=== PATIENT | female | born 1950 | race Caucasian/White ===

== ENCOUNTER 2016-08-04 07:09 | Inpatient (IN) ==
--- NOTE | 2016-08-03 11:18 | Discharge Summary ---
<Venessa Giles E - Last Filed: 08/04/16 09:09> Date of Encounter: 08/04/16 - Discharge Diagnosis (1) Arthritis of left knee Priority: Primary Status: Acute (2) Chronic pain syndrome Priority: Secondary (Patient to hold chronic pain med ([place]) while taking post- op pain med (Oxycodone)) Status: Acute (3) COPD (chronic obstructive pulmonary disease) Priority: Secondary Status: Chronic Qualifiers: COPD type: unspecified COPD Qualified Code(s): J44.9 - Chronic obstructive pulmonary disease, unspecified (4) Hypothyroidism Priority: Secondary Status: Chronic Qualifiers: Hypothyroidism type: unspecified Qualified Code(s): E03.9 - Hypothyroidism , unspecified (5) Obesity, Class III, BMI 40-49.9 (morbid obesity) Priority: Secondary Status: Chronic (6) History of kidney stones Priority: Secondary Status: Acute - Discharge Medications Home Medications: OxyCODONE Immed Rel [Roxicodone 5 MG] 5 - 10 mg PO Q6HR PRN #40 tablet 08/03/16 [Rx] Aspirin Enteric Coated [Aspirin EC] 325 mg PO BID #30 tablet. 08/04/16 [Rx] Buspirone HCl [Buspar] 10 mg PO TID 08/04/16 [History] Cholecalciferol (D-3) [Vitamin D] 2,000 unit PO DAILY 08/04/16 [History] Cyclobenzaprine [Flexeril] 10 mg PO TID 08/04/16 [History] HYDROcodone/Acet 10/325 mg [[place] 10-325 mg] 1 tab PO Q4-6H PRN 08/04/16 [ History] Levothyroxine [Synthroid] 50 mcg PO 0630 08/04/16 [History] Pramipexole Di-HCl [Pramipexole Dihydrochloride] 1 mg PO DAILY 08/04/16 [History ] Sertraline [Zoloft] 200 mg PO DAILY 08/04/16 [History] Trospium Chloride 20 mg PO BID 08/04/16 [History] Allergies/Adverse Reactions: Allergies morphine Allergy (Verified 08/04/16 08:18) Anaphylaxis Primary care physician: Willow Chase - Patient Status Disposition: Transfer Inpatient Rehab Fac Condition: Good - Discharge Instructions Follow Up With: Willow Chase [Primary Care Provider] - - Hospital Course Hospital course: Ms. Hills is a 65 year old female - Time Spent with Patient Total time spent providing and/or coordinating discharge services: <Dung Scott - Last Filed: 08/06/16 07:53> Date of Encounter: 08/06/16 Time of Encounter: 07:53 - Discharge Diagnosis (1) Arthritis of left knee Priority: Primary Status: Acute (2) Chronic pain syndrome Priority: Secondary Status: Acute (3) COPD (chronic obstructive pulmonary disease) Priority: Secondary Status: Chronic Qualifiers: COPD type: unspecified COPD Qualified Code(s): J44.9 - Chronic obstructive pulmonary disease, unspecified (4) Hypothyroidism Priority: Secondary Status: Chronic Qualifiers: Hypothyroidism type: unspecified Qualified Code(s): E03.9 - Hypothyroidism , unspecified (5) Obesity, Class III, BMI 40-49.9 (morbid obesity) Priority: Secondary Status: Chronic (6) Acute blood loss anemia Priority: Primary Status: Acute Primary care physician: Willow Chase - Patient Status Functional capacity at discharge: uses cane/walker Overall status at discharge: patient is progressing back to baseline - Hospital Course Hospital course: Ms. Hills is a 65 year old female The patient had an uneventful postoperative course. They received antibiotics and physical therapy and were discharged in stable condition. There will follow -up in the office in 2 weeks. Aspirin DVT prophylaxis - Time Spent with Patient Total time spent providing and/or coordinating discharge services:
--- NOTE | 2016-08-04 07:44 | History & Physical Report ---
Date of Encounter: 08/04/16 Time of Encounter: 07:43 24 Hour HP Update - Instructions Instructions: If the History and Physical is less than 30 days old and was completed prior to A.M. admission and or procedure and has NOT been updated on calendar day of procedure please complete this update prior to performing procedure. - Update Patient reports changes in Medical Condition: No Changes in examination, assessment, or condition: No Changes in Medication: No Preop tests/diagnostics Reviewed: Yes Surgery Remains Indicated: Yes Consent for Planned Operative Procedure(s) Verified: Yes - Pre-Operative Checklist Preoperative Checklist Indicated: No Prophylactic Antibiotic Ordered: Yes Is VTE Prophylaxis Indicated?: Yes
[2016-08-04] MEDS ORDERED: ROPIVACAINE HCL/PF 0.5% 30 ML VIAL ONE (07:46)
[2016-08-04] MEDS ORDERED: Bupivacaine/Clonidine Syringe 1 EACH SYRINGE ONE (07:47)
--- NOTE | 2016-08-04 07:47 | Anesthesia Evaluation PreOp ---
Date of Encounter: 08/04/16 Time of Encounter: 07:44 - Past History Planned Operation: Left Total Knee Arthroplasty Cardiac History: Denies any Significant Hx Pulmonary History: Former smoker (quit 24 years ago, smoked for 25 years), COPD , NATACHA Dx COPIER TECHNICIAN History: Denies Any Significant HX Other Medical History: Renal (kidney stones), Thyroid, GERD, Other (obesity BMI= 49.8) Anesthesia History: No Prior Anesthetic Complications, Past Anesthesia ( hysterectomy) Alcohol Use: none Drug use: none Medications and Allergies Hydrocodone/Acetaminophen [[place] 5-325 Tablet] 1 tab PO Q6H PRN #10 tab [Rx] Naproxen [Naprosyn] 500 mg PO BID PRN #15 tablet 12/28/15 [Rx] OxyCODONE Immed Rel [Roxicodone 5 MG] 5 - 10 mg PO Q6HR PRN #40 tablet 08/03/16 [Rx] Allergies morphine Allergy (Verified 08/04/16 08:18) Anaphylaxis - Meds/Allergy Pre-op Review Medications Reviewed: Yes Allergies Reviewed: Yes Beta Blockers on Current Med List: No Anesthesia Results - Labs Laboratory Tests 07/20/16 07/20/16 07/20/16 10:28 10:28 10:28 WBC 5.3 Hgb 13.1 Hct 39.1 Plt Count 174 PT 11.1 INR 1.0 APTT 28.6 Sodium 139 Potassium 4.4 BUN 31 H Creatinine 1.03 - Imaging EKG: report reviewed (08/04/2016 SR, short OH interval, possible lateral infarct) Anesthesia Exam O2 Sat Height 1.7 m Height 1.7 m Weight 144.242 kg Weight 144.242 kg O2 Sat by Pulse Oximetry 95 Vital Signs Temp Pulse Resp BP Pulse Ox 98.6 F 69 18 141/69 95 08/04/16 07:37 08/04/16 07:37 08/04/16 07:37 08/04/16 07:37 08/04/16 07:37 Height: 5'7'' Weight: 318 lbs NPO (# of Hours): 8 Pain Scale: 4 (left knee) Pain Scale Used: Numeric (1 - 10) - HEENT Pupil (Motor): EOMI Mallampati: II Teeth: Normal Denture Type: Upper: Partial, Lower: Partial Oral Opening: Greater than 3 - COPIER TECHNICIAN LOC: Oriented COPIER TECHNICIAN Motor: Normal RUE, Normal LUE, Normal RLE, Normal LLE, Normal Face COPIER TECHNICIAN Sensory: Normal: RUE, LUE, RLE, LLE, Face - Cardiac Rhythm: Regular Murmur: None - Pulmonary Breath Sounds: bilateral Clear Respiratory Effort: Symmetrical Anesthesia Assess/Plan ASA Score: 3 Modified [place] Scale for Level of Consciousness: Cooperative, oriented, and tranquil Anesthetic Plan: General, Regional Monitoring Plan: Standard Monitors Recovery Plan: PACU
[2016-08-04] MEDS ORDERED: Albuterol 2.5 MG/3 ML NEBULIZER IH ONE (08:01)
[2016-08-04] MEDS ORDERED: CeFAZolin Pre 3,000 MG/100 ML 3,000 MG/100 ML BAG IVPB ONE (08:07)
[2016-08-04] MEDS ORDERED: Lidocaine -MPF 2% 2 ML VIAL ONE (08:09)
[2016-08-04] MEDS ORDERED: Ondansetron 4 MG/2 ML VIAL ONE (08:09)
[2016-08-04] MEDS ORDERED: Dexamethasone 4 MG/ML VIAL ONE (08:09)
[2016-08-04] MEDS ORDERED: *HR* FentaNYL (PF) 100 MCG/2 ML VIAL ONE (08:10)
[2016-08-04] MEDS ORDERED: *HR* Midazolam HCl 2 MG/2 ML VIAL ONE (08:10)
[2016-08-04] MEDS ORDERED: *HR* Propofol 200 MG/20 ML VIAL IVP ONE ×2 (08:11→09:33)
[2016-08-04] MEDS ORDERED: Ondansetron 4 MG/2 ML VIAL IVP ONE (08:12)
[2016-08-04] MEDS ORDERED: Dexamethasone 4 MG/ML VIAL IVP ONE (08:12)
[2016-08-04] MEDS ORDERED: Ringers Solution, Lactated 1,000 ML IVC SCH ×2 (08:15→11:06)
[2016-08-04] MEDS: Ringers Solution, Lactated 1,000 ML IVC SCH ×2 (08:26→10:35)
--- NOTE | 2016-08-04 09:35 | Anesthesia Procedures ---
Date of Encounter: 08/04/16 Time of Encounter: 08:50 Procedures: Anesthesia - Nerve Block Procedure Date: 08/04/16 Time: 08:50 Allergies/Adv Reactions: Morphine Pre-op Diagnosis: Left knee OA Surgical Procedure: Left total knee arthroplasty Checklist: Correct Patient Identifier, Correct procedure, History checked Correct side: Left Blood Thinner: No Monitor Applied: EKG, BP, Pulse Oximetry Supplemental Oxygen via Nasal Cannula (L/min): 2 Sedation: Versed (mg): 2 Sedation: Fentanyl (mcg): 100 Indication: Post Op Analgesia Pre-op Neuro Deficits: No Block Type: Femoral, Other Catheter placed: No Sterile Technique: Yes Ultrasound used: Yes Anatomy identified: Yes Visual spread of Local: Yes Neuro Stimulation: Yes Nerve Stimulator Range: 0.2 - 0.4 mA Blood on Needle Aspiration: No Smooth Injection of Local: Yes Pain with Injection of Local: No Prep: Chlorhexadine Needle: 22 x 50 mm Stimuplex, 21 x 100 mm Stimuplex Local: 0.25% Bupivicaine w/Clonidine 20 mcg/cc (20ml IPAC), Ropivacaine (30ml 0.5% femoral), Other (Decadron 8mg) Volume (cc): 50 total Number of Attempts: 1 Complications: None/effective block Vitals: Vital Signs Temperature 98.6 F 08/04/16 07:37 Pulse Rate 69 08/04/16 07:37 Respiratory Rate 18 08/04/16 07:37 Blood Pressure 141/69 08/04/16 07:37 O2 Sat by Pulse Oximetry 95 08/04/16 07:37 Temperature 98.6 F 08/04/16 08:40 Pulse Rate 84 08/04/16 09:02 Respiratory Rate 18 08/04/16 08:40 Blood Pressure 130/67 08/04/16 09:02 O2 Sat by Pulse Oximetry 96 08/04/16 09:02
--- NOTE | 2016-08-04 10:07 | Orthopedic Operative Note ---
Date of procedure: 08/04/16 Pre-op diagnosis: Left knee arthritis Post-op diagnosis: same Procedure: Procedure: Left Total knee replacement Estimated blood loss: 200 cc Hardware: Arthrex Femur: 7 Tibia: 5 PS insert: 10 Patella: 34 Exam Under anesthesia: Loss full extension 10 degrees valgus alignment Procedural Notes: Grade 4 arthritic changes all 3 compartments. Operative procedure: The patient was brought to the operating room and placed on the operating room table. After general anesthesia was administered the operative knee was examined. Findings were noted in the exam under anesthesia. The operative extremity was prepped and draped in sterile surgical fashion. The patient received IV antibiotics prior to skin incision. A standard midline incision was made centered over the patella. The incision was made through the skin and subcutaneous tissue. A medial parapatellar tendon approach was performed. Care was taken to preserve tissue along the medial aspect of the patella. And to protect the patella tendon. The deep MCL was released off the medial tibia. The infra patella fat pad was excised. Knee was brought into flexion. Patient noted to have grade 4 arthritic changes all 3 compartments. The entry hole was made for the intramedullary femoral guide. The guide was seated in 6 degrees of valgus. Anterior cut was made followed by the distal cut. The ACL the PCL the medial and the lateral menisci were excised. The tibia was subluxed forward. The entry hole was made for the intramedullary tibial guide. Guide was seated to resect 2 mm off the more abnormal side. The knee was brought into flexion the distal femur was sized 7. The femoral guide was seated , the anterior cut was made followed by the posterior condylar cut, followed by the chamfer cuts. The finishing guide was seated the box cut was made and the lug holes were drilled. The tibia was sized 5, the tibial tray was seated and prepared with the large drill followed by the fin cutter. Trial reduction revealed full extension no varus valgus instability with the appropriate 10 PS Maura. The patella was everted and cut was made at the level of the insertion of the quadriceps and patella tendon. The patella was sized 34 the guide was seated and the lug holes are drilled. Trial reduction revealed excellent patella tracking. All trial components were removed all bony surfaces were irrigated. The tibia was cemented first followed by the femur. 10 PS Maura was seated and the knee was brought into full extension. The patella was cemented and held in place with the patellar holding clamp. After the cement had hardened, the knee sat for 2 minutes with a Betadine saline solution. The knee was then irrigated out with 2 L of pulse irrigation. The extensor mechanism was closed with #2 FiberWire suture and #2 PDS suture. The subcutaneous tissue was then irrigated and closed deep with #1 PDS suture superficially with 0 PDS suture and skin was closed with skin breanna. The patient was then placed in a sterile dressing and a postoperative brace extubated and transferred to recovery room in stable condition. Anesthesia: PEYTON Surgeon: Dung Scott Steel Finisher: Venessa Giles Condition: stable Disposition: PACU
[2016-08-04] MEDS: *HR* HYDROmorphone (PF) 1 MG/ML SYRINGE IVP PRN ×8 (10:16→23:54)
[2016-08-04 10:36] LABS: Hematocrit 33.2 % (35.3-44.9); Hemoglobin 10.4 g/dL (11.5-15.4)
--- NOTE | 2016-08-04 10:51 | Anesthesia Evaluation Post Op ---
Date of Encounter: 08/04/16 Time of Encounter: 10:50 - Vital Signs Vital Signs: Vital Signs/O2 Sat, Most Current Temp Pulse Resp BP Pulse Ox 99.2 F 83 12 137/70 91 08/04/16 10:09 08/04/16 10:29 08/04/16 10:29 08/04/16 10:29 08/04/16 10:29 - Lungs Lungs: Clear Ascult./Percussion - Airway Airway: Non-obstructed - Cardiovascular Regular Rate - Mental Status Mental Status: Alert & Oriented, Answers Appropriately - Pain Pain Scale: 5 Pain Scale used: Numeric (1 - 10) - Nausea Vomiting Nausea Vomiting: Not Present - Hydration Hydration: Ice chips, Has not voided - Discharge PostOp Status: Transfer Patient to floor
[2016-08-04] MEDS ORDERED: MOM Conc 10 ML UD.LIQ PO PRN (11:06)
[2016-08-04] MEDS ORDERED: *HR* OxyCODONE Immed Rel 5 MG TABLET PO PRN (11:06)
[2016-08-04] MEDS ORDERED: Sennosides 8.6 MG TABLET PO PRN (11:06)
[2016-08-04] MEDS ORDERED: Temazepam 15 MG CAPSULE PO PRN (11:06)
[2016-08-04] MEDS ORDERED: Naloxone 0.4 MG/ML INJ IVP PRN (11:06)
[2016-08-04] MEDS ORDERED: Ondansetron 4 MG/2 ML VIAL IVP PRN (11:06)
--- NOTE | 2016-08-04 11:23 | Electrocardiograph Report ---
[facility] Test Date: 2016-08-04 Pat Name: Key Hills Department: 106 Room: [facility] Gender: [employer] Head: : 1950 Requested By: Tay Monzon Order Number: [id number] Reading MD: Stan Mercedes MD Measurements Intervals [place] Rate: 73 P: 56 KS: 99 QRS: 36 QRSD: 110 T: 96 QT: 420 QTc: 446 Interpretive Statements SINUS RHYTHM WITH SHORT [place] INTERVAL LATERAL MYOCARDIAL INFARCTION, OF INDETERMINATE AGE Electronically Signed On 08-04-2016 11:21:44 EDT by Stan Mercedes MD
[2016-08-04] MEDS: *HR* OxyCODONE Immed Rel 5 MG TABLET PO PRN ×2 (12:35→17:04)
[2016-08-04] MEDS: ceFAZolin 3,000 MG in D5% in Water 100 ML IVPB SCH (17:03)
[2016-08-04] MEDS: *HR* Enoxaparin 30 MG/0.3 ML SYRINGE SQ SCH (17:04)
[2016-08-05] MEDS: ceFAZolin 3,000 MG in D5% in Water 100 ML IVPB SCH (00:15)
[2016-08-05] MEDS: *HR* OxyCODONE Immed Rel 5 MG TABLET PO PRN ×4 (01:18→15:34)
[2016-08-05] MEDS: *HR* HYDROmorphone (PF) 1 MG/ML SYRINGE IVP PRN ×5 (03:09→18:29)
[2016-08-05] MEDS: *HR* Enoxaparin 30 MG/0.3 ML SYRINGE SQ SCH ×2 (06:33→18:29)
[2016-08-05 07:00] LABS: BUN/Creatinine Ratio 19 (6-26); Blood Urea Nitrogen 14 mg/dL (7-20); Calcium 8.3 mg/dL (8.6-10.8); Carbon Dioxide 31 mEq/L (19-29); Chloride 100 mEq/L (98-109); Glucose 130 mg/dL (70-99); Osmolality,Calculated 288 (280-300); Sodium 138 mEq/L (136-145); eGFR For African Americans > 60 (> 60); eGFR For Non-African Americans > 60 (> 60)
[2016-08-05 07:05] LABS: Hematocrit 31.9 % (35.3-44.9); Hemoglobin 9.7 g/dL (11.5-15.4)
[2016-08-05] MEDS: Cholecalciferol (D-3) 1,000 UNIT TABLET PO SCH (07:41)
--- NOTE | 2016-08-05 07:58 | Orthopedics Progress Note ---
Date of Encounter: 08/05/16 Time of Encounter: 07:57 - Assessment and Plan (1) Arthritis of left knee Current Visit: Yes Status: Acute (2) Chronic pain syndrome Current Visit: Yes Status: Acute (3) COPD (chronic obstructive pulmonary disease) Current Visit: Yes Status: Chronic Qualifiers: COPD type: unspecified COPD Qualified Code(s): J44.9 - Chronic obstructive pulmonary disease, unspecified (4) Hypothyroidism Current Visit: Yes Status: Chronic Qualifiers: Hypothyroidism type: unspecified Qualified Code(s): E03.9 - Hypothyroidism , unspecified (5) Obesity, Class III, BMI 40-49.9 (morbid obesity) Current Visit: Yes Status: Chronic Subjective Interval history: Patient was seen this morning doing well without complaints. Afebrile vital signs stable. Operative extremity: Neurovascularly intact Dressing clean dry and intact Calves nontender Assessment and plan: Continue with postoperative care Hematocrit 31 Objective Vital signs: Vital Signs Temp Pulse Resp BP Pulse Ox 08/05/16 06:32 98.1 F 73 16 135/78 95 08/05/16 04:00 97.7 F 70 17 137/79 96 08/05/16 00:00 97.7 F 86 17 177/76 98 08/04/16 20:00 98.1 F 83 16 130/74 92 08/04/16 14:52 98.3 F 85 16 129/73 99 08/04/16 12:17 98 F 91 18 148/71 97 08/04/16 11:45 98.1 F 89 20 159/87 95 08/04/16 11:09 95 08/04/16 11:08 98.2 F 84 18 121/75 95 08/04/16 10:49 97.8 F 84 14 134/69 94 08/04/16 10:39 97.8 F 85 13 140/69 93 08/04/16 10:29 83 12 137/70 91 08/04/16 10:19 84 16 137/75 93 08/04/16 10:09 99.2 F 82 20 135/75 98 08/04/16 09:02 84 130/67 96 08/04/16 08:46 81 143/66 94 08/04/16 08:40 98.6 F 69 18 141/69 95 Intake and Output 08/04/16 08/04/16 08/05/16 15:59 23:59 07:59 Intake Total 100 / 100 1000 / 1000 250 / 250 Output Total 200 / 200 575 / 575 325 / 325 Balance -100 / -100 425 / 425 -75 / -75 Intake: IV Fluids 100 / 100 100 / 100 Lactated Ringers 1,000 ML 0 / 0 @ 25 mls/hr IVC .Q24H [place] Rx#:[id number] Ancef 3,000 MG In 100 / 100 Dextrose 5% 100 ML @ 200 mls/hr IVPB Q8H [place] Rx#: [id number] Ancef Premix 3,000 MG/100 100 / 100 ML 3,000 mg In 100 ml @ 200 mls/hr IVPB PREOP ONE Rx#:[id number] Oral 900 / 900 250 / 250 Output: Urine 575 / 575 325 / 325 Estimated Blood Loss 200 / 200 Other: Meal Dinner Percent of Meal Consumed 100% Weight 144.242 kg - Labs CBC & BMP: 08/05/16 05:39 08/05/16 05:39 Labs: Abnormal lab results Hgb 9.7 g/dL (11.5-15.4) L 08/05/16 05:39 Hct 31.9 % (35.3-44.9) L 08/05/16 05:39 Carbon Dioxide 31 mEq/L (19-29) H 08/05/16 05:39 Glucose 130 mg/dL (70-99) H 08/05/16 05:39 Calcium 8.3 mg/dL (8.6-10.8) L 08/05/16 05:39 - VTE Documentation of Mechanical Device: Venous foot pump, device Consult Discharge Plan - Plan Referrals: Willow Chase [Primary Care Provider] -
[2016-08-05] MEDS ORDERED: Acetaminophen IV 1,000 MG/100 ML INFUS..BTL IVPB ONE (13:21)
[2016-08-05] MEDS: Ketorolac 30 MG/ML VIAL IVP PRN ×2 (14:30→21:30)
[2016-08-05] MEDS: Gabapentin 300 MG CAPSULE PO SCH ×2 (17:45→20:08)
[2016-08-06] MEDS: *HR* HYDROmorphone (PF) 1 MG/ML SYRINGE IVP PRN (01:43)
[2016-08-06] MEDS: *HR* OxyCODONE Immed Rel 5 MG TABLET PO PRN ×3 (03:16→13:09)
[2016-08-06] MEDS: *HR* Enoxaparin 30 MG/0.3 ML SYRINGE SQ SCH (05:40)
[2016-08-06 06:11] LABS: Hematocrit 27.4 % (35.3-44.9); Hemoglobin 8.3 g/dL (11.5-15.4)
[2016-08-06 06:33] LABS: BUN/Creatinine Ratio 18 (6-26); Blood Urea Nitrogen 13 mg/dL (7-20); Calcium 8.3 mg/dL (8.6-10.8); Carbon Dioxide 31 mEq/L (19-29); Chloride 99 mEq/L (98-109); Glucose 112 mg/dL (70-99); Osmolality,Calculated 285 (280-300); Potassium 4.3 mEq/L (3.5-4.5); Sodium 137 mEq/L (136-145); eGFR For African Americans > 60 (> 60); eGFR For Non-African Americans > 60 (> 60)
--- NOTE | 2016-08-06 07:54 | Orthopedics Progress Note ---
Date of Encounter: 08/06/16 Time of Encounter: 07:54 - Assessment and Plan (1) Arthritis of left knee Current Visit: Yes Status: Acute (2) Chronic pain syndrome Current Visit: Yes Status: Acute (3) COPD (chronic obstructive pulmonary disease) Current Visit: Yes Status: Chronic Qualifiers: COPD type: unspecified COPD Qualified Code(s): J44.9 - Chronic obstructive pulmonary disease, unspecified (4) Hypothyroidism Current Visit: Yes Status: Chronic Qualifiers: Hypothyroidism type: unspecified Qualified Code(s): E03.9 - Hypothyroidism , unspecified (5) Obesity, Class III, BMI 40-49.9 (morbid obesity) Current Visit: Yes Status: Chronic (6) Acute blood loss anemia Current Visit: Yes Status: Acute Subjective Interval history: Patient was seen this morning doing well without complaints. Afebrile vital signs stable. Operative extremity: Neurovascularly intact Dressing clean dry and intact Calves nontender Assessment and plan: Continue with postoperative care Hemoglobin 8.3 discharged today Objective Vital signs: Vital Signs Temp Pulse Resp BP Pulse Ox 08/06/16 06:55 98.5 F 87 16 155/78 95 08/06/16 05:45 98.3 F 90 17 163/77 97 08/05/16 20:00 98.7 F 104 16 118/60 91 08/05/16 14:08 98.7 F 87 16 129/76 95 08/05/16 10:33 98.4 F 83 16 131/72 96 Intake and Output 08/05/16 08/05/16 08/06/16 15:59 23:59 07:59 Other: # Voids 1 1 - Labs CBC & BMP: 08/06/16 05:13 08/06/16 05:13 Labs: Abnormal lab results Hgb 8.3 g/dL (11.5-15.4) L 08/06/16 05:13 Hct 27.4 % (35.3-44.9) L 08/06/16 05:13 Carbon Dioxide 31 mEq/L (19-29) H 08/06/16 05:13 Glucose 112 mg/dL (70-99) H 08/06/16 05:13 Calcium 8.3 mg/dL (8.6-10.8) L 08/06/16 05:13 - VTE Documentation of Mechanical Device: Venous foot pump, device Consult Discharge Plan - Plan Referrals: Willow Chase [Primary Care Provider] -
[2016-08-06] MEDS: Gabapentin 300 MG CAPSULE PO SCH ×2 (09:06→14:41)
[2016-08-06] MEDS: Cholecalciferol (D-3) 1,000 UNIT TABLET PO SCH (09:07)
[2016-08-06 15:31] VITALS: BP 128/70
--- NOTE | 2016-08-06 19:39 | Venous Imaging Report ---
LE Venous Duplex Patient Name:Key Hills Order Number:[id number] Procedure Date:08/05/2016 Date:1950ge:65 yrs Gender:Female Location:[facility] Room #: 3NE23 Cryogenics Engineer:Terri Sandoval RDCS Referring MD:Dung Scott MD siding stapler:Willow Chase MD Reading MD:Bradley Castaneda MD Primary Indications:DVT Secondary Indications: Risk Factors Yes/No Anticoagulants Yes Recent Surgery Yes Impressions: Normal left lower extremity deep and superficial venous exam. Recommendations: Preliminary given to Pt RN, Gina. Findings Venous Duplex Results: Left: Venous imaging of the lower extremity reveals full patency and normal vessel compressibility of the left distal iliac, left common femoral, left superficial femoral, left popliteal, left posterior tibial, left peroneal, left great saphenous and left lesser saphenous. Doppler signals in the evaluated veins were normal. Prior Study: No prior study available for comparison. Lower Extremity Venous Duplex Side Vein Compress Spontaneous Flow Augment Diameter (cm) Depth (cm) Left Distal Iliac Normal Yes Phasic Yes Left Common Femoral Normal Yes Phasic Yes Left Superficial Femoral Normal Yes Phasic Yes Left Popliteal Normal Yes Phasic Yes Left Posterior Tibial Normal Yes Phasic Yes Left Peroneal Normal Yes Phasic Yes Left Great Saphenous Normal Yes Phasic Yes Left Lesser Saphenous Normal Yes Phasic Yes Updated by Bradley Castaneda MD on 08/06/2016 7:32:14 PM electronically signed on 08/06/2016 7:32:30 PM with status of Final
== END 2016-08-06 16:38 | DRG 302 ==
LOC: SAMDAY 07:09 → 3NENU 11:20
PROVIDERS: ADMIT Orthopaedic Surgery; ATTEND Orthopaedic Surgery

== ENCOUNTER 2018-09-11 12:37 | Inpatient (IN) ==
[2018-09-11] MEDS ORDERED: Albuterol 2.5 MG/3 ML NEBULIZER IH ONE (12:49)
[2018-09-11] MEDS ORDERED: Ethanol\\Acetic Acid\\Na Ace\\Ben 1,000 ML IRRIG.SOLN IR ONE ×2 (12:52→14:09)
[2018-09-11] MEDS ORDERED: Acetaminophen IV 1,000 MG/100 ML INFUS..BTL IVPB ONE (12:54)
[2018-09-11] MEDS ORDERED: Famotidine 20 MG/2 ML VIAL IVP ONE (12:54)
[2018-09-11] MEDS ORDERED: Celecoxib 100 MG CAPSULE PO ONE (12:55)
[2018-09-11] MEDS ORDERED: Pregabalin 75 MG CAPSULE PO ONE (12:55)
[2018-09-11] MEDS ORDERED: Ringers Solution, Lactated 1,000 ML IVC SCH ×2 (13:00→17:28)
[2018-09-11] MEDS ORDERED: ROPIVACAINE HCL/PF 0.5% 30 ML VIAL ONE (13:06)
[2018-09-11] MEDS ORDERED: Lidocaine -MPF 2% 2 ML VIAL ONE ×2 (13:15→14:45)
[2018-09-11] MEDS ORDERED: Dexamethasone 4 MG/ML VIAL ONE (13:15)
--- NOTE | 2018-09-11 13:18 | Anesthesia Evaluation PreOp ---
Date of Encounter: 09/11/18 Time of Encounter: 13:15 - Past History Planned Operation: Left TKA Revision Cardiac History: Denies any Significant Hx Pulmonary History: COPD, NATACHA Dx (CPAP) FINISHING INSPECTOR History: Denies Any Significant HX Other Medical History: Diabetes Type II, Thyroid, GERD, Other (Morbid Obesity) Anesthesia History: No Prior Anesthetic Complications : No Alcohol Use: none Drug use: none Medications and Allergies Cholecalciferol (D-3) [Vitamin D] 2,000 unit PO HS 08/04/16 [History] Cyclobenzaprine [Flexeril] 10 mg PO BID 08/04/16 [History] HYDROcodone/Acet 10/325 mg [[place] 10-325 mg] 1 tab PO Q4-6H PRN 08/04/16 [History] Levothyroxine [Synthroid] 50 mcg PO HS 08/04/16 [History] Pramipexole Di-HCl [Pramipexole Dihydrochloride] 1 mg PO HS 08/04/16 [History] Albuterol Sulfate [Ventolin Hfa] 2 puff IH Q4H PRN 02/24/17 [History] Gabapentin [Neurontin] 600 mg PO HS 02/24/17 [History] Potassium 198 mg PO HS 02/24/17 [History] Aspirin Enteric Coated [Aspirin EC] 325 mg PO BID #20 tablet. 08/26/17 [Rx] Cyanocobalamin (Vitamin B-12) [Vitamin B-12] 1,000 mcg PO DAILY 08/26/17 [History] Duloxetine HCl [Cymbalta] 60 mg PO DAILY 08/26/17 [History] Fluticasone/Vilanterol [Breo Ellipta 200-25 Mcg INH] 1 puff IH DAILY 08/26/17 [History] HYDROcodone/Acet 5/325 mg [[place] 5-325 mg] 1 tab PO Q6H PRN 5 Days #20 tab 08/26/17 [Rx] Meloxicam [Mobic] 15 mg PO DAILY 08/26/17 [History] predniSONE [Prednisone] 50 mg PO DAILY #5 tablet 10/20/17 [Rx] Allergy/AdvReac Type Severity Reaction Status Date / Time morphine Allergy Hives Verified 09/11/18 13:04 oxycodone [Oxycodone] AdvReac Hallucinati Verified 09/11/18 13:04 ng - Meds/Allergy Pre-op Review Medications Reviewed: Yes Allergies Reviewed: Yes Beta Blockers on Current Med List: No Anesthesia Results - Labs Laboratory Tests 09/06/18 09/06/18 11:30 11:30 Hgb 12.2 Hct 38.7 Plt Count 193 Sodium 139 Potassium 4.1 BUN 17 Creatinine 0.67 - Imaging EKG: report reviewed (SR) Anesthesia Exam O2 Sat Height 1.7 m Height 1.7 m Weight 148.325 kg Weight 148.325 kg O2 Sat by Pulse Oximetry 95 Vital Signs Temp Pulse Resp BP Pulse Ox 98.1 F 82 18 153/80 95 09/11/18 12:55 09/11/18 12:55 09/11/18 12:55 09/11/18 12:55 09/11/18 12:55 Height: 5'7 Weight: 327 lbs NPO (# of Hours): [place] Pain Scale: 0 - HEENT Pupil (Motor): Pupils equal, EOMI Mallampati: III Teeth: Normal Oral Opening: Less than or equal to 3 - FINISHING INSPECTOR LOC: Oriented FINISHING INSPECTOR Motor: Normal RUE, Normal LUE, Normal RLE, Normal LLE, Normal Face FINISHING INSPECTOR Sensory: Normal: RUE, LUE, RLE, LLE, Face - Cardiac Rhythm: Regular Murmur: None JVD: No Carotid Bruit: No - Pulmonary Breath Sounds: bilateral Clear Respiratory Effort: Symmetrical Anesthesia Assess/Plan ASA Score: 3 (NATACHA MO) Level of consciousness: Cooperative, Oriented Anesthetic Plan: Regional Nerve Block, Spinal Regional Nerve Block Plan: Adductor canal Monitoring Plan: Standard Monitors Recovery Plan: PACU (Discussed SAB with Adductor Canal Block, possible GA, agrees to proceed)
--- NOTE | 2018-09-11 13:34 | History & Physical Report ---
Date of Encounter: 09/11/18 Time of Encounter: 13:34 24 Hour HP Update - Instructions Instructions: If the History and Physical is less than 30 days old and was completed prior to A.M. admission and or procedure and has NOT been updated on calendar day of procedure please complete this update prior to performing procedure. - Update Patient reports changes in Medical Condition: No Changes in examination, assessment, or condition: No Changes in Medication: No Preop tests/diagnostics Reviewed: Yes Surgery Remains Indicated: Yes Consent for Planned Operative Procedure(s) Verified: Yes - Pre-Operative Checklist Preoperative Checklist Indicated: No Prophylactic Antibiotic Ordered: Yes Is VTE Prophylaxis Indicated?: Yes
[2018-09-11] MEDS ORDERED: Tranexamic Acid 1,000 MG/10 ML VIAL ONE (14:31)
[2018-09-11] MEDS ORDERED: *HR* Midazolam HCl 2 MG/2 ML VIAL ONE (14:45)
[2018-09-11] MEDS ORDERED: *HR* PHENYLEPHRINE 1,000 MCG/10 ML SYRINGE IVP ONE (14:45)
[2018-09-11] MEDS ORDERED: *HR* Propofol 200 MG/20 ML VIAL IVP ONE ×2 (14:45→15:12)
[2018-09-11] MEDS ORDERED: Propofol 500 MG/50 ML INFUS..BTL ONE ×4 (14:45→15:46)
[2018-09-11] MEDS ORDERED: *HR* FentaNYL (PF) 100 MCG/2 ML VIAL ONE (14:45)
--- NOTE | 2018-09-11 14:50 | Anesthesia Procedures ---
Date of Encounter: 09/11/18 Time of Encounter: 14:00 Procedures: Anesthesia - Epidural/Spinal Patient ID/Chart reviewed: Yes Patient examined: Yes Consent Obtained: Yes Supplemental Oxygen: Nasal Cannula Supplemental Oxygen Rate (L/min): 2 Sedation: Versed (mg): 2 Sedation: Fentanyl (mcg): 100 Site Prep: Aseptic Technique, Sterile prep and drape, Povidone-Iodine 1% Patient position: upright Local Anesthetic: Lidocaine 1% Amount of Local Anesthetic used: 3 Interspace Used: L4-L5 Blood: No CSF: Yes (spinal) Paresthesia: No Spinal Needle Gauge: 24 (pencan) Spinal Dose: bupivicaine 0.5% 2ml Vitals + FHT's: Vital Signs - Last 8 Hours Temp Pulse Resp BP Pulse Ox 09/11/18 13:50 83 144/91 94 09/11/18 12:55 98.1 F 82 18 153/80 95 Intake and Output 09/10/18 09/11/18 09/11/18 23:59 07:59 15:59 Other: Weight 148.325 kg Blood Glucose* 120 Patient Weight 09/11/18 23:59 Weight 148.325 kg - Nerve Block Procedure Date: 09/11/18 Time: 14:00 Allergies/Adv Reactions: morphine oxycodone Pre-op Diagnosis: left total knee arthritis Surgical Procedure: left total knee revision Checklist: Correct Patient Identifier, Correct procedure, History checked Correct side: Left Blood Thinner: No Monitor Applied: EKG, BP, Pulse Oximetry Supplemental Oxygen via Nasal Cannula (L/min): 2 Sedation: Versed (mg): 2 Sedation: Fentanyl (mcg): 100 Indication: Post Op Analgesia Pre-op Neuro Deficits: No Block Type: Other (adductor canal ) Catheter placed: No Sterile Technique: Yes Ultrasound used: Yes Anatomy identified: Yes Visual spread of Local: Yes Neuro Stimulation: No Blood on Needle Aspiration: No Smooth Injection of Local: Yes Pain with Injection of Local: No Prep: Chlorhexadine Needle: 21 x 100 mm Stimuplex Local: Ropivacaine (0.5% ropi with 8mg decadron ) Volume (cc): 30 Number of Attempts: 1 Complications: None/effective block Vitals: Vital Signs - Last 8 Hours Temp Pulse Resp BP Pulse Ox 09/11/18 13:50 83 144/91 94 09/11/18 12:55 98.1 F 82 18 153/80 95 Intake and Output 09/10/18 09/11/18 09/11/18 23:59 07:59 15:59 Other: Weight 148.325 kg Blood Glucose* 120 Patient Weight 09/11/18 23:59 Weight 148.325 kg
[2018-09-11] MEDS ORDERED: Ropivacaine/PF 0.5% 24.62 ML, EPINEPHrine 0.25 MG, Ketorolac 15 MG, Water for inj. (ste... IR ONE (14:55)
--- NOTE | 2018-09-11 15:59 | Orthopedic Operative Note ---
Date of procedure: 09/11/18 Pre-op diagnosis: Painful unstable left total knee with patellar maltracking Post-op diagnosis: same Procedure: Procedure: Left revision robotic-assisted Total knee replacement with lateral release. Estimated blood loss: 200 cc Hardware: Metal and polyethylene replacement. Drew Femur: 4, 16 x 100 stem Tibia: 5, 10 x 100 stem TS insert: 16 Exam Under anesthesia: 7 degrees flexion contracture 6 degree varus as calculated by the robot full flexion and no instability Procedural Notes: Patella maltracking, loose tibial component. Operative procedure: The patient was brought to the operating room and placed on the operating room t able. After general anesthesia was administered the operative knee was examined. Findings were noted in the exam under anesthesia. The operative extremity was prepped and draped in sterile surgical fashion. The patient received IV antibiotics prior to skin incision. A standard midline incision was made centered over the patella revealed incision. The incision was made through the skin and subcutaneous tissue. A medial parapatellar tendon approach was performed. Care was taken to preserve tissue along the medial aspect of the patella. And to protect the patella tendon. The deep MCL was released off the medial tibia. The infra patella fat pad was excised. Fluid encountered was normal joint fluid sent for Gram stain and culture. The patella was everted close examination of the patella revealed no abnormalities or abnormal wear the component. It was well fixed. A lateral release was performed at this time. Knee was brought into flexion. Steinmann pins were placed in the tibia and the femur for the tibial and femoral arrays respectively. Checkpoints were also placed in the tibia and the femur for calculation purposes. The knee including the femur and the tibial registered. The poly-was removed, using an osteotome and oscillating saw the femoral and tibial components were removed without incident. The tibial component was loose. Femoral cuts were made first with robotic assistance, these included the anterior cut posterior cuts chamfer cuts. Tibial cut was then performed with robotic assistance as well. Bone fragments were removed, as well as the medial and lateral meniscus. The size 4 femoral guide was seated box cut was made lug holes are drilled. The size 5 tibial tray was seated and prepared with the fin cutter. Trial reduction with the 16 TS Maura revealed extension 0 degrees varus 5 degree and full flexion. No varus valgus instability. Trial reduction revealed excellent patella tracking. All trial components were removed all bony surfaces were irrigated. The distal femur was reamed to a 16 x 100, the proximal tibia was reamed to a 10 x 100. Seated had good fit and fixation. Components were assembled on the back table. The Tibia was seated followed by the femur, The selected Maura size was seated. Patient had similar findings for motion and stability. The knee was closed by the PA. The knee was then irrigated out with 2 L of pulse irrigation. The extensor mechanism was closed with #2 FiberWire suture and #2 PDS suture. The subcutaneous tissue was then irrigated and closed deep with #1 PDS suture superficially with 0 PDS suture and skin was closed with zip tie The patient was then placed in a sterile dressing and a postoperative brace extubated and transferred to recovery room in stable condition. Anesthesia: spinal Surgeon: Dung Scott Was there an assistant winemaker present: No Estimated blood loss (cc): 200 Condition: stable Disposition: PACU
[2018-09-11 17:28] LABS: Hematocrit 31.8 % (35.3-44.9)
[2018-09-11] MEDS ORDERED: Naloxone 0.4 MG/ML INJ IVP PRN (17:28)
[2018-09-11] MEDS ORDERED: MOM Conc 10 ML UD.LIQ PO PRN (17:28)
[2018-09-11] MEDS ORDERED: *HR* Promethazine 25 MG/ML VIAL IVP PRN (17:28)
[2018-09-11] MEDS ORDERED: Ondansetron 4 MG/2 ML VIAL IVP PRN (17:28)
[2018-09-11] MEDS ORDERED: Temazepam 15 MG CAPSULE PO PRN (17:28)
[2018-09-11] MEDS ORDERED: HYDROcodone BIT/Homatropine 5 MG TABLET PO PRN (17:28)
[2018-09-11] MEDS ORDERED: Nystatin POWDER 30 GM BOTTLE TP PRN (17:28)
[2018-09-11] MEDS ORDERED: traMADol 50 MG TABLET PO PRN (17:28)
[2018-09-11] MEDS ORDERED: Sennosides 8.6 MG TABLET PO PRN (17:28)
--- NOTE | 2018-09-11 17:28 | Anesthesia Evaluation Post Op ---
Date of Encounter: 09/11/18 Time of Encounter: 17:28 - Vital Signs Vital Signs: Last Vital Signs Temp 98.7 F 09/11/18 17:10 Pulse 60 09/11/18 17:10 Resp 18 09/11/18 17:10 BP 122/67 09/11/18 17:10 Pulse Ox 93 09/11/18 17:10 - Lungs Lungs: Clear Ascult./Percussion - Airway Airway: Non-obstructed - Cardiovascular Regular Rate - Mental Status Mental Status: Alert & Oriented, Answers Appropriately - Pain Pain Scale: 1 - Nausea Vomiting Nausea Vomiting: Not Present - Hydration Hydration: NPO - Discharge PostOp Status: Transfer Patient to floor
[2018-09-11 17:36] LABS: Hemoglobin 10.1 g/dL (11.5-15.4)
[2018-09-11] MEDS ORDERED: *HR* Enoxaparin 30 MG/0.3 ML SYRINGE SQ SCH (18:00)
[2018-09-11] MEDS: *HR* Enoxaparin 30 MG/0.3 ML SYRINGE SQ SCH (18:12)
[2018-09-11] MEDS: *HR* Metformin 500 MG TABLET PO SCH (18:13)
[2018-09-11] MEDS: Ascorbic Acid 500 MG TABLET PO SCH (18:13)
[2018-09-11] MEDS: *HR* HYDROcodone/Acet 10/325 mg TABLET PO PRN (18:20)
[2018-09-11] MEDS: ceFAZolin 3,000 MG in 0.9 % Sodium Chloride 100 ML IVPB SCH (19:12)
--- NOTE | 2018-09-11 21:23 | Discharge Summary ---
<Venessa Forbes - Last Filed: 09/11/18 21:20> Orders not resulted at time of discharge: Pending orders 09/11/18 01:00 XR knee LT 1-2V [XR] Routine 09/11/18 12:53 US anesthesia pain block [US] Routine 09/11/18 14:42 Culture,Anaerobic [RM] Routine Culture,Wound [RM] Routine 09/11/18 15:54 Surgical Pathology [PTH] Routine 09/12/18 04:00 Basic Metabolic Panel DAILY Complete Blood Count [HEME] DAILY 09/13/18 04:00 Basic Metabolic Panel DAILY Complete Blood Count [HEME] DAILY Date of Encounter: 09/11/18 - Discharge Diagnosis (1) Status post revision of total replacement of left knee Priority: Primary Status: Acute (2) Loose total knee arthroplasty Priority: Primary Status: Chronic Qualifiers: Encounter type: subsequent encounter Laterality: left Qualified Code(s): T84.033D - Mechanical loosening of internal left knee prosthetic joint, subsequent encounter (3) NATACHA on CPAP Priority: Secondary Status: Chronic (4) Diabetes Priority: Secondary Status: Chronic Qualifiers: Diabetes mellitus type: other specified (including OSWALD) Diabetes mellitus custodial insulin use: unspecified termite control representative insulin use status Diabetes mellitus complication status: with unspecified complications Qualified Code(s): - (5) COPD (chronic obstructive pulmonary disease) Priority: Secondary Status: Chronic Qualifiers: COPD type: unspecified COPD Qualified Code(s): J44.9 - Chronic obstructive pulmonary disease, unspecified (6) Hypothyroidism Priority: Secondary Status: Chronic Qualifiers: Hypothyroidism type: unspecified Qualified Code(s): E03.9 - Hypothyroidism, unspecified (7) Morbid obesity with BMI of 50.0-59.9, adult Priority: Secondary Status: Chronic - Hospital Course Hospital course: Ms. Hills is a 67 year old female status post left TKR revision 09/11/18 secondary to loosening of hardware with medical history of NATACHA on CPAP, thyroid disorder, DM, COPD, and obesity. - Time Spent with Patient Total time spent providing and/or coordinating discharge services: - Discharge Medications Prescriptions: New Aspirin Enteric Coated [Aspirin EC] 325 mg PO BID 10 Days #20 tablet. Docusate Sodium [Colace] 100 mg PO BID 5 Days #10 capsule Continued Pramipexole Di-HCl [Pramipexole Dihydrochloride] 1 mg PO HS Levothyroxine [Synthroid] 50 mcg PO HS Potassium 198 mg PO HS Duloxetine HCl [Cymbalta] 120 mg PO QPM Fluticasone/Vilanterol [Breo Ellipta 200-25 Mcg INH] 1 puff IH QAM Atorvastatin Calcium [Lipitor] 20 mg PO QAM Cyclobenzaprine HCl 10 mg PO DAILY PRN PRN Reason: Muscle Spasm HYDROcodone/Acet 10/325 mg [[place] 10-325 mg] 1 - 2 tab PO Q3-4H PRN PRN Reason: Pain Metformin HCl 500 mg PO BID Naproxen Sodium [Aleve] 440 mg PO QAM Nystatin POWDER [Nystop] 1 appl TP DAILY PRN PRN Reason: Sweating Tiotropium [Spiriva] 1 puff PO QAM Discontinued Aspirin [Lo-Dose Aspirin EC] 81 mg PO QAM Home Medications: Levothyroxine [Synthroid] 50 mcg PO HS 08/04/16 [History] Pramipexole Di-HCl [Pramipexole Dihydrochloride] 1 mg PO HS 08/04/16 [History] Potassium 198 mg PO HS 02/24/17 [History] Duloxetine HCl [Cymbalta] 120 mg PO QPM 08/26/17 [History] Fluticasone/Vilanterol [Breo Ellipta 200-25 Mcg INH] 1 puff IH QAM 08/26/17 [History] Aspirin Enteric Coated [Aspirin EC] 325 mg PO BID 10 Days #20 tablet. 09/11/18 [Rx] Atorvastatin Calcium [Lipitor] 20 mg PO QAM 09/11/18 [History] Cyclobenzaprine HCl 10 mg PO DAILY PRN 09/11/18 [History] Docusate Sodium [Colace] 100 mg PO BID 5 Days #10 capsule 09/11/18 [Rx] HYDROcodone/Acet 10/325 mg [[place] 10-325 mg] 1 - 2 tab PO Q3-4H PRN 09/11/18 [History] Metformin HCl 500 mg PO BID 09/11/18 [History] Naproxen Sodium [Aleve] 440 mg PO QAM 09/11/18 [History] Nystatin POWDER [Nystop] 1 appl TP DAILY PRN 09/11/18 [History] Tiotropium [Spiriva] 1 puff PO QAM 09/11/18 [History] Allergies/Adverse Reactions: Allergy/AdvReac Type Severity Reaction Status Date / Time morphine Allergy Hives Verified 09/11/18 13:04 oxycodone [Oxycodone] AdvReac Hallucinati Verified 09/11/18 13:04 ng Date of admission: 09/11/18 17:31 Primary care physician: Willow Chase Consults: 09/11/18 17:28 Consult to Nutrition [CONS] Routine Comment: Consulting Provider: NUTRITION Reason for Dietary Consult: Other Other:: Proper nutrition to facilitate wound healing Consult to Occupational Therapy [CONS] Routine Comment: Evaluate, develop and implement POC Reason for Consult: post knee surgery Does patient have active BEDREST order?: No Is patient medically & hemodynamically stable?: Yes Consult to Orthopedic Navigator [CONS] [CONS] Routine Consult to Physical Therapy [CONS] Routine Comment: Evaluate, develop and impliment POC Reason for Consult: post knee surgery Does patient have active BEDREST order?: No Is patient medically & hemodynamically stable?: Yes Consult to Physical Director [CONS] Routine Reason for SW Consult: post op joint replacement RT Post Op Consult [CONS] Routine Labs on day of discharge: Labs from last 24 hours 09/11/18 09/11/18 16:49 12:52 Hgb 10.1 L D Hct 31.8 L POC Glucose 120 H Preliminary micro results at discharge 09/11/18 14:42 Wound Culture - Preliminary Left Knee Culture is incubating. 09/11/18 14:42 Anaerobic Culture - Preliminary Left Knee Culture is incubating. - Patient Status Disposition: Transfer Intermediate Care Fac Condition: Good - Discharge Instructions Follow Up With: Venessa Giles PAC [Physician Mixing Machine Attendant] - 09/21/18 3:00 pm Dung Scott MD [Partnered Physician] - 10/11/18 5:10 pm Additional Instructions: Discharge Instructions: Total Knee Replacement Please call [facility] ([phone]), your Primary Care Physician, or report to the Emergency Room if you have any of the following symptoms: Nausea, vomiting, fever greater that 101.5, swelling, chest pain, shortness of breath, increased pain/redness/drainage/odor for your incision site, numbness/tingling, or any other concerning symptoms. ACTIVITY:Weight-bearing as tolerated. You may progress off support (crutches or walker) as tolerated. Incentive Spirometer 10 times an hour. MEDICATIONS: Upon discharge resume your home medications. Take all the medications as prescribed. Take a stool softener if taking narcotic pain medications. Stool softeners are only effective if you drink enough fluids. Drink 6-8 glass of water or fluids a day, unless this is not allowed for another health problem. Despite using stool softeners, if you haven't had a bowel movement in 3 days, please switch to a gentle laxative. Gentle laxatives are sold over the counter. You should have a bowel movement within 24 hours, if not call the office. You will be discharged from the hospital with a prescription for pain medication. You are encouraged to decrease the use of narcotic pain medication as tolerated. Should you require a refill, please call the office. [facility] prescribes narcotic pain medication for only 4-6 weeks after surgery. If you require pain medication beyond this time period, you may be referred to your Primary Care Physician or to the Pain Clinic for further evaluation. Plan ahead for refills on pain medication as many narcotics either need to be picked up at the office or mailed. It is best to call 48-72 hours in advance of needing a prescription refill so you don't run out of medication. To help control the post-operative pain, you may take NSAIDs (Aleve,Advil, Motrin, Ibuprofen, Naprosyn) or Tylenol as prescribed on the bottle in addition to the pain medication. ANTICOAGULATION (blood thinners): Continue your Aspirin, Lovenox or Coumadin as prescribed to help prevent a blood clot in the leg or in the lungs. As long as your incision remains dry and you tolerate the NSAIDs (Aleve, Advil, Motrin, ibuprofen, naprosyn), it is OK to use the NSAIDS while you are taking your anticoagulation medication. Should your incision start to drain, stop the NSAID and contact our office. Common symptoms of blood clot in the legs include: localized pain, swelling, ca lf tenderness, redness or discoloration of the skin. Blood clot in the lung symptoms include: shortness of breath, rapid pulse, sweating, and chest pain that worsens with deep breathing, coughing up blood, lightheadedness, feelings of anxiety. If you experience any of these symptoms notify your physician immediately, go to the emergency room, or if having trouble breathing, call 911. WOUND CARE: Leave the dressing on for 7 to 10days. You may change the dressing if it becomes saturated greater than 50%. Do not get the dressing wet at anytime. Wash your hands with antibacterial soap, rinse and dry prior to any wound care. If you have breanna the visiting nurse or rehab facility can remove the stapes 10-14 days after surgery and place steri-strips across the wound. Leave the steri-strips in place until they fall off on their won. You may let water from the shower run on top of the steri-strips. If you do not have a visiting nurse or rehab facility, you will need to return to the office at 10-14 days for the breanna to be removed. If you have itching or redness around the dressing call the office. FOLLOW-UP: Please follow up with your surgeon in the orthopedic clinic in 4 weeks from the day of surgery. If you have breanna that need to be removed, you will need to come back to the office in 10-14 days from the day of surgery. <Venessa Giles E - Last Filed: 09/15/18 16:53> Orders not resulted at time of discharge: Pending orders 09/11/18 12:53 US anesthesia pain block [US] Routine 09/11/18 14:42 Culture,Anaerobic [RM] Routine 09/11/18 15:54 Surgical Pathology [PTH] Routine Date of Encounter: 09/14/18 Time of Encounter: 16:00 - Discharge Diagnosis (1) Loosening of prosthesis of left total knee replacement Priority: Primary Status: Chronic Qualifiers: Encounter type: subsequent encounter Qualified Code(s): T84.033D - Mechanical loosening of internal left knee prosthetic joint, subsequent encounter (2) Status post revision of total replacement of left knee Priority: Primary Status: Acute (3) Acute blood loss anemia Priority: Primary Status: Acute (4) COPD (chronic obstructive pulmonary disease) Priority: Secondary Status: Chronic Qualifiers: COPD type: unspecified COPD Qualified Code(s): J44.9 - Chronic obstructive pulmonary disease, unspecified (5) Chronic pain syndrome Priority: Secondary Status: Chronic (6) Diabetes Priority: Secondary Status: Chronic Qualifiers: Diabetes mellitus type: other specified (including OSWALD) Diabetes mellitus termite control representative insulin use: unspecified custodial insulin use status Diabetes mellitus complication status: with other specified complication Qualified Code(s): E13.69 - Other specified diabetes mellitus with other specified complication (7) History of kidney stones Priority: Secondary Status: Chronic (8) Hypothyroidism Priority: Secondary Status: Chronic Qualifiers: Hypothyroidism type: unspecified Qualified Code(s): E03.9 - Hypothyroidism, unspecified (9) Morbid obesity with BMI of 50.0-59.9, adult Priority: Secondary Status: Chronic (10) NATACHA on CPAP Priority: Secondary Status: Chronic (11) Patellar instability of left knee Priority: Secondary Status: Chronic - Hospital Course Hospital course: Ms. Hills is a 68 year old female POD#3 status post left TKR revision 09/11/18 secondary to loosening of hardware with medical history of NATACHA on CPAP, thyroid disorder, DM, COPD, and obesity. Patient seen at bedside. A&Ox3 Dressing and incision c/d/i - scant old drainage noted along mid and distal incision on dressing no greater than 1cm in size. No calf tenderness, erythema, or warmth. Neurovascularly intact b/l LE. Labwork, vitals, and medications reviewed. Pain control: Adequate Participating in PT. All questions and concerns addressed. Educated on use of incentive spirometer, ambulation, and hydration. Patient educated on post-operative restrictions and care. Addressed: Patient concerned about swelling and redness to knee. On examination stasis noted to bilateral lower extremities more prominent to operative sotelo. She relates it subsides with elevation of the leg. Encouraged elevation frequently and calf pump exercises to encouraged reduction of swelling. Patient verbalized understanding and agreement. Leave dressing in place until outpatient follow up WBAT Knee immobilizer while sleeping x 2 weeks postoperative Case reviewed with Dr. Scott D/C plan: to [facility] for rehab today with plan for outpatient orthopedic follow up - Time Spent with Patient Total time spent providing and/or coordinating discharge services: Date of admission: 09/11/18 17:31 Primary care physician: Willow Chase Consults: 09/11/18 17:28 Consult to Nutrition [CONS] Routine Comment: Consulting Provider: NUTRITION Reason for Dietary Consult: Other Other:: Proper nutrition to facilitate wound healing Consult to Occupational Therapy [CONS] Routine Comment: Evaluate, develop and implement POC Reason for Consult: post knee surgery Does patient have active BEDREST order?: No Is patient medically & hemodynamically stable?: Yes Consult to Orthopedic Navigator [CONS] [CONS] Routine Consult to Physical Therapy [CONS] Routine Comment: Evaluate, develop and impliment POC Reason for Consult: post knee surgery Does patient have active BEDREST order?: No Is patient medically & hemodynamically stable?: Yes Consult to Physical Director [CONS] Routine Reason for SW Consult: post op joint replacement RT Post Op Consult [CONS] Routine Discharging clinician: Dung Scott Anticipated date of discharge: 09/14/18 - VTE Documentation of Mechanical Device: Venous foot pump, device Labs on day of discharge: Labs from last 24 hours 09/14/18 09/14/18 09/13/18 07:28 07:28 20:32 WBC 6.1 RBC 3.50 L Hgb 10.2 L Hct 32.4 L MCV 92.6 MCH 29.1 MCHC 31.5 L RDW 15.2 H Plt Count 164 MPV 11.4 Immature Gran % 0.5 Seg Neutrophils % 58.8 Lymphocytes % 27.0 Monocytes % 5.3 Eosinophils % 7.9 Basophils % 0.5 Neutrophils # 3.6 Lymphocytes # 1.6 Monocytes # 0.3 Eosinophils # 0.5 Basophils # 0.0 Sodium 138 Potassium 4.3 Chloride 100 Carbon Dioxide 31 H BUN 16 Creatinine 0.63 Est GFR ( Amer) > 60 Est GFR (Non-Af Amer) > 60 BUN/Creatinine Ratio 25 Glucose 113 H POC Glucose 123 H Calculated Osmolality 288 Calcium 9.1 09/13/18 09/13/18 11:21 07:37 WBC RBC Hgb Hct MCV MCH MCHC RDW Plt Count MPV Immature Gran % Seg Neutrophils % Lymphocytes % Monocytes % Eosinophils % Basophils % Neutrophils # Lymphocytes # Monocytes # Eosinophils # Basophils # Sodium Potassium Chloride Carbon Dioxide BUN Creatinine Est GFR ( Amer) Est GFR (Non-Af Amer) BUN/Creatinine Ratio Glucose POC Glucose 123 H 113 H Calculated Osmolality Calcium Preliminary micro results at discharge 09/11/18 14:42 Anaerobic Culture - Preliminary Left Knee At this time, no anaerobic growth is present. The culture will be finalized after 5 days of incubation. - Impressions ITS Impressions Knee X-Ray 09/11/18 01:00 IMPRESSION: Status post revision of left knee arthroplasty. No acute postoperative complication. D/ / 09/12/2018 08:32:09 Lio Juan MD / Christel Jackson Interpreting Provider: Lio Juan MD - Patient Status Functional capacity at discharge: uses cane/walker Overall status at discharge: patient is progressing back to baseline - Diet and Activity Activity: as per physical therapy Diet: advance to your usual diet
--- NOTE | 2018-09-11 21:25 | Physician Discharge Referral ---
<Venessa Forbes - Last Filed: 09/11/18 21:24> ExtendedCare Referral Info Transfer To: [facility] Provider in Charge: Dr. Scott - Diagnosis (1) Status post revision of total replacement of left knee Priority: Primary Status: Acute (2) Loose total knee arthroplasty Priority: Primary Status: Chronic (3) NATACHA on CPAP Priority: Secondary Status: Chronic (4) Diabetes Priority: Secondary Status: Chronic (5) COPD (chronic obstructive pulmonary disease) Priority: Secondary Status: Chronic (6) Hypothyroidism Priority: Secondary Status: Chronic (7) Morbid obesity with BMI of 50.0-59.9, adult Priority: Secondary Status: Chronic Expected Duration of Placement: <30 days Prognosis: Good Aware of Diagnosis: Patient Aware of Prognosis: Patient - Transfer Medications Home Medications: Levothyroxine [Synthroid] 50 mcg PO HS 08/04/16 [History] Pramipexole Di-HCl [Pramipexole Dihydrochloride] 1 mg PO HS 08/04/16 [History] Potassium 198 mg PO HS 02/24/17 [History] Duloxetine HCl [Cymbalta] 120 mg PO QPM 08/26/17 [History] Fluticasone/Vilanterol [Breo Ellipta 200-25 Mcg INH] 1 puff IH QAM 08/26/17 [History] Aspirin Enteric Coated [Aspirin EC] 325 mg PO BID 10 Days #20 tablet. 09/11/18 [Rx] Atorvastatin Calcium [Lipitor] 20 mg PO QAM 09/11/18 [History] Cyclobenzaprine HCl 10 mg PO DAILY PRN 09/11/18 [History] Docusate Sodium [Colace] 100 mg PO BID 5 Days #10 capsule 09/11/18 [Rx] HYDROcodone/Acet 10/325 mg [[place] 10-325 mg] 1 - 2 tab PO Q3-4H PRN 09/11/18 [History] Metformin HCl 500 mg PO BID 09/11/18 [History] Naproxen Sodium [Aleve] 440 mg PO QAM 09/11/18 [History] Nystatin POWDER [Nystop] 1 appl TP DAILY PRN 09/11/18 [History] Tiotropium [Spiriva] 1 puff PO QAM 09/11/18 [History] Allergies/Adverse Reactions: Allergy/AdvReac Type Severity Reaction Status Date / Time morphine Allergy Hives Verified 09/11/18 13:04 oxycodone [Oxycodone] AdvReac Hallucinati Verified 09/11/18 13:04 ng - Respiratory Orders Smoking Cessation: Smoking cessation has been advised. For more information, call the [place] Tobacco Quit Line at 7-422-GSYC-NOW. - Ancillary Orders May use pressure relief devices daily prn, May go on SUSAN w/family/respon constitution party w/meds at nurse discretion PRN, May consult with Dentist, Estate Tax Examiner, Churn Drill Operator PRN - Advance Directives Code Status: Full Code - Mobility Orders Chair, Ambulate - Rehabiliation Orders Rehab Potential: Good Rehab Orders: ROM Exercises, Evaluation for Physical Therapy, Evaluation for Occupational Therapy Other: Knee Continuity: Opsite dressing, leave intact until first post-operative visit. If dressing becomes >50% saturated, contact office, remove dressing and place appropriate dressing in its place. Do not allow for dressing to get wet. Zipline/Bogdan in place, plan to remove at post-operative day #14-16. Total Joint Precautions x 6 weeks Apply cold therapy wrap 3-6x/day for 20 minutes at a time. Encourage ambulation throughout the day Use Incentive spirometer 10x/hour. Elevate affected extremity above heart as tolerated. Brace: Wear knee immobilizer at night x 2 weeks. - Treatments Skin tear care topically daily PRN per policy - Diet Orders Regular CERTIFICATION: I certify that the transfer of the above named patient to an Extended Care Facility is necessary for the continuing treatment of the diagnosis listed. The above information is true and accurate reflection of patient's current condition. Confidential - Redisclosure prohibited without a patient's written consent. <Venessa Giles E - Last Filed: 09/14/18 16:48> - Diagnosis (1) Loosening of prosthesis of left total knee replacement Priority: Primary Status: Acute (2) Status post revision of total replacement of left knee Priority: Primary Status: Acute (3) Acute blood loss anemia Priority: Primary Status: Acute (4) Diabetes Priority: Secondary Status: Chronic (5) NATACHA on CPAP Priority: Secondary Status: Chronic (6) COPD (chronic obstructive pulmonary disease) Status: Chronic (7) Chronic pain syndrome Priority: Secondary Status: Chronic (8) Hypothyroidism Priority: Secondary Status: Chronic (9) Patellar instability of left knee Priority: Secondary Status: Chronic Prognosis: Good Aware of Diagnosis: Patient Aware of Prognosis: Patient - Respiratory Orders Smoking Cessation: Smoking cessation has been advised. For more information, call the [place] Tobacco Quit Line at 7-343-PIKB-NOW. - Ancillary Orders May use pressure relief devices daily prn, May go on SUSAN w/family/respon constitution party w/meds at nurse discretion PRN, May consult with Dentist, Estate Tax Examiner, Churn Drill Operator PRN - Advance Directives Code Status: Full Code - Mobility Orders Chair, Ambulate - Rehabiliation Orders Rehab Potential: Good Rehab Orders: ROM Exercises, Evaluation for Physical Therapy, Evaluation for Occupational Therapy - Treatments Skin tear care topically daily PRN per policy - Diet Orders Regular CERTIFICATION: I certify that the transfer of the above named patient to an Extended Care [facility] is necessary for the continuing treatment of the diagnosis listed. The above information is true and accurate reflection of patient's current condition. Confidential - Redisclosure prohibited without a patient's written consent.
[2018-09-11] MEDS: POTASSIUM 198 MG PO SCH (21:58)
[2018-09-12] MEDS: *HR* HYDROcodone/Acet 10/325 mg TABLET PO PRN ×5 (00:20→20:32)
[2018-09-12] MEDS: ceFAZolin 3,000 MG in 0.9 % Sodium Chloride 100 ML IVPB SCH (02:52)
[2018-09-12 06:00] LABS: Basophils % 0.2 %; Hematocrit 31.6 % (35.3-44.9); Immature Granulocytes % 0.6 % (0-4); Lymphocytes # 0.9 K/mcL (0.6-4.6); Lymphocytes % 10.4 %; Mean Corpuscular HGB Conc 31.6 g/dL (31.6-35.5); Mean Corpuscular Hemoglobin 29.1 pg (28.0-33.3); Mean Corpuscular Volume 91.9 fL (83.0-100.0); Mean Platelet Volume 11.5 fL (9.4-12.4); Monocytes # 0.4 K/mcL (0.0-1.3); Monocytes % 4.7 %; Platelet Count 164 K/mcL (140-400); Red Blood Count 3.44 M/mcL (3.82-4.97); Red Cell Distribution Width 14.4 % (11.5-14.5); Segmented Neutrophils % 84.1 %
[2018-09-12 06:18] LABS: BUN/Creatinine Ratio 26 (6-26); Blood Urea Nitrogen 16 mg/dL (8-23); Calcium 8.9 mg/dL (8.6-10.3); Carbon Dioxide 27 mEq/L (23-29); Chloride 103 mEq/L (98-107); Glucose 237 mg/dL (70-105); Osmolality,Calculated 295 (280-300); Potassium 3.9 mEq/L (3.5-5.1); Sodium 138 mEq/L (136-145); eGFR For Non-African Americans > 60 (> 60)
--- NOTE | 2018-09-12 06:39 | Orthopedics Progress Note ---
Date of Encounter: 09/12/18 Time of Encounter: 06:38 Subjective Interval history: Patient was seen this morning doing well without complaints. Afebrile vital signs stable. Operative extremity: Neurovascularly intact Wound active bleeding, breanna added, dressing changed Calves nontender Assessment and plan: Continue with postoperative care hematocrit 31, hold knee motion Objective Vital signs: Vital Signs Temp Pulse Resp BP Pulse Ox 09/12/18 03:58 98.0 F 69 17 114/73 93 09/11/18 22:48 98.2 F 70 16 134/78 95 09/11/18 18:35 97.6 F 68 17 158/75 94 09/11/18 17:31 97.4 F L 59 16 131/66 94 09/11/18 17:10 98.7 F 60 18 122/67 93 09/11/18 17:00 98.1 F 61 18 127/64 95 09/11/18 16:50 60 18 121/63 94 09/11/18 16:40 66 18 117/67 97 09/11/18 16:30 98.5 F 70 20 119/69 99 09/11/18 13:50 83 144/91 94 09/11/18 12:55 98.1 F 82 18 153/80 95 Intake and Output 09/11/18 09/11/18 09/12/18 15:59 23:59 07:59 Intake Total 900 / 900 200 / 200 Output Total 200 / 1800 1600 / 1800 Balance -200 / -900 -700 / -900 200 / 200 Intake: IV Fluids 100 / 100 Ancef 3,000 MG In 0.9 % Sodium 100 / 100 Chloride 100 ML @ 200 mls/hr IVPB Q8H [facility] Rx#:[id number] Oral 800 / 800 200 / 200 Output: Urine 0 / 1600 1600 / 1600 Estimated Blood Loss 200 / 200 Other: Weight 148.325 kg Blood Glucose* 120 257 - Labs CBC & BMP: 09/12/18 05:23 09/12/18 05:23 Labs: Abnormal lab results RBC 3.44 M/mcL (3.82-4.97) L 09/12/18 05:23 Hgb 10.0 g/dL (11.5-15.4) L 09/12/18 05:23 Hct 31.6 % (35.3-44.9) L 09/12/18 05:23 Glucose 237 mg/dL (70-105) H 09/12/18 05:23 POC Glucose 257 mg/dL (70-99) H 09/11/18 22:08 Consult Discharge Plan - Plan Referrals: Willow Chase [Primary Care Provider] -
[2018-09-12] MEDS: *HR* Enoxaparin 30 MG/0.3 ML SYRINGE SQ SCH ×2 (06:42→12:35)
[2018-09-12] MEDS: Budesonide/Formoterol 160/4.5 1 PUFF INH IH SCH ×2 (07:48→20:25)
[2018-09-12] MEDS: Tiotropium 18 MCG inhalation IH SCH (07:48)
[2018-09-12] MEDS: *HR* Metformin 500 MG TABLET PO SCH ×2 (09:16→15:36)
[2018-09-12] MEDS: Multivit/Ca/Min/Fe/FA 1 TAB TABLET PO SCH (09:16)
[2018-09-12] MEDS: Ascorbic Acid 500 MG TABLET PO SCH ×2 (09:16→15:36)
[2018-09-12] MEDS: Aspirin Enteric Coated 81 MG Tablet PO SCH (09:16)
[2018-09-12] MEDS ORDERED: *HR* OxyCODONE/APAP 5/325 TABLET PO ONE (11:45)
--- NOTE | 2018-09-12 17:56 | Event Note ---
Date of Encounter: 09/12/18 Time of Encounter: 12:10 PCR - POD#1 s/p Left revision robotic-assisted Total knee replacement with lateral release 09/11/18 Patient seen at bedside, without complaints. A&O x 3 Afebrile, vital signs stable. She was noted to have bleeding this morning and Mario Scott added breanna to incision around 6:30am this morning. Nursing notes dressings are saturated again. On exam there is no active bleeding and where assumed bleeding is coming from based on drainage pattern on dressing there is no where else to add additional breanna at this time. Continue with pressure dressings and NO knee flexion until bleeding stops. Will hold next dose of lovenox as well. Labs reviewed. H/H - 10.0/31.6 stable, asymptomatic Pain control: inadequate - patient admits she chronically takes 1-2 tab at a time of norco 10-325 every 3-4hrs on a regular basis at home although family reminded her that the bottle states every 4-6hrs. She has listed an allergy to oxycodone, upon questioning allergy she states she gets groggy with hallucinations after taking scheduled oxycodone for several days. She states she has had percocet in the past with no issues and she is requesting this medication as her current pain level is above her baseline pain level. Will give one time dose of percocet to help get pain under control in addition to adding lidocaine patch for localized relief. Nurse navigator will contact patient's regular pain medication provider to come up with plan for medication upon discharge. As plan formed will provide rx as needed based on going to ECF to be written "for ECF fill only". Participating in PT. Hold knee flexion for now due to bleeding. All questions and concerns addressed. Educated on use of incentive spirometer. Encouraged ambulation and proper hydration. Patient educated on post-operative restrictions and post-operative care. Assessment and plan: Continue with postoperative care Discharge plan: ECF pending auth
[2018-09-12] MEDS: POTASSIUM 198 MG PO SCH (20:37)
[2018-09-13] MEDS: *HR* HYDROcodone/Acet 10/325 mg TABLET PO PRN ×5 (01:42→22:24)
[2018-09-13] MEDS ORDERED: Acetaminophen IV 1,000 MG/100 ML INFUS..BTL IVPB PRN (02:32)
[2018-09-13] MEDS: Ketorolac 30 MG/ML VIAL IVP PRN ×2 (03:10→16:07)
[2018-09-13 03:17] LABS: Basophils % 0.4 %; Eosinophils # 0.4 K/mcL (0.0-0.6); Hematocrit 29.5 % (35.3-44.9); Hemoglobin 9.2 g/dL (11.5-15.4); Immature Granulocytes % 0.6 % (0-4); Lymphocytes # 1.7 K/mcL (0.6-4.6); Lymphocytes % 24.6 %; Mean Corpuscular HGB Conc 31.2 g/dL (31.6-35.5); Mean Corpuscular Volume 93.1 fL (83.0-100.0); Mean Platelet Volume 11.2 fL (9.4-12.4); Monocytes # 0.5 K/mcL (0.0-1.3); Monocytes % 6.6 %; Neutrophils # 4.3 K/mcL (1.6-8.9); Platelet Count 145 K/mcL (140-400); Red Blood Count 3.17 M/mcL (3.82-4.97); Red Cell Distribution Width 14.8 % (11.5-14.5); Segmented Neutrophils % 61.8 %
[2018-09-13 04:55] LABS: BUN/Creatinine Ratio 23 (6-26); Blood Urea Nitrogen 15 mg/dL (8-23); Calcium 8.8 mg/dL (8.6-10.3); Carbon Dioxide 29 mEq/L (23-29); Chloride 103 mEq/L (98-107); Glucose 160 mg/dL (70-105); Osmolality,Calculated 292 (280-300); Potassium 3.9 mEq/L (3.5-5.1); Sodium 139 mEq/L (136-145); eGFR For Non-African Americans > 60 (> 60)
[2018-09-13] MEDS: *HR* Enoxaparin 30 MG/0.3 ML SYRINGE SQ SCH ×2 (05:39→17:43)
--- NOTE | 2018-09-13 06:24 | Orthopedics Progress Note ---
Date of Encounter: 09/13/18 Time of Encounter: 06:24 - Assessment and Plan (1) Acute blood loss anemia Current Visit: Yes Status: Acute Subjective Interval history: Patient was seen this morning doing well without complaints. Afebrile vital signs stable. Operative extremity: Neurovascularly intact Dressing clean dry and intact. Calves nontender Assessment and plan: Continue with postoperative care discharge when able Objective Vital signs: Vital Signs Temp Pulse Pulse Resp BP Pulse Ox 09/12/18 22:10 98.6 F 71 16 142/90 95 09/12/18 21:20 77 09/12/18 20:28 16 93 09/12/18 19:03 98.4 F 78 16 126/75 95 09/12/18 15:39 97.4 F L 72 16 111/67 94 09/12/18 10:54 98.0 F 70 19 133/72 94 09/12/18 07:51 18 98 09/12/18 07:05 97.5 F L 65 18 144/77 98 Intake and Output 09/12/18 09/12/18 09/13/18 15:59 23:59 07:59 Intake Total 240 / 1480 1040 / 1480 250 / 250 Output Total 1300 / 1300 400 / 400 Balance 240 / 180 -260 / 180 -150 / -150 Intake: Oral 240 / 1480 1040 / 1480 250 / 250 Output: Urine 1300 / 1300 400 / 400 Other: Meal Breakfast Dinner Percent of Meal Consumed 100% 100% Weight 148.5 kg Blood Glucose* 109 131 Patient Weight 09/13/18 23:59 Weight 148.5 kg - Labs CBC & BMP: 09/13/18 02:50 09/13/18 02:54 Labs: Abnormal lab results RBC 3.17 M/mcL (3.82-4.97) L 09/13/18 02:50 Hgb 9.2 g/dL (11.5-15.4) L 09/13/18 02:50 Hct 29.5 % (35.3-44.9) L 09/13/18 02:50 MCHC 31.2 g/dL (31.6-35.5) L 09/13/18 02:50 RDW 14.8 % (11.5-14.5) H 09/13/18 02:50 Glucose 160 mg/dL (70-105) H 09/13/18 02:54 POC Glucose 109 mg/dL (70-99) H 09/12/18 15:51 Consult Discharge Plan - Plan Referrals: Willow Chase [Primary Care Provider] -
[2018-09-13] MEDS: Budesonide/Formoterol 160/4.5 1 PUFF INH IH SCH ×2 (07:36→20:35)
[2018-09-13] MEDS: Tiotropium 18 MCG inhalation IH SCH (07:36)
[2018-09-13] MEDS: *HR* Metformin 500 MG TABLET PO SCH ×2 (08:35→17:43)
[2018-09-13] MEDS: Aspirin Enteric Coated 81 MG Tablet PO SCH (08:35)
[2018-09-13] MEDS: Ascorbic Acid 500 MG TABLET PO SCH ×2 (08:35→17:44)
[2018-09-13] MEDS: Multivit/Ca/Min/Fe/FA 1 TAB TABLET PO SCH (08:35)
--- NOTE | 2018-09-13 16:23 | Event Note ---
Date of Encounter: 09/13/18 Time of Encounter: 12:00 PCR - POD#2 s/p Left revision robotic-assisted Total knee replacement with lateral release 09/11/18 Patient seen at bedside, without complaints. A&O x 3 Afebrile, vital signs stable. no increase in drainage on dressing from yesterday, improved. Labs reviewed. H/H - 9.2/29.5 stable, asymptomatic Pain control: adequate at this time, improved from yesterday, lidocaine patches did help - (patient admits she chronically takes 1-2 tab at a time of norco 10- 325 every 3-4hrs on a regular basis at home although family reminded her that the bottle states every 4-6hrs. She has listed an allergy to oxycodone, upon questioning allergy she states she gets groggy with hallucinations after taking scheduled oxycodone for several days. She states she has had percocet in the past with no issues. Nurse navigator will contact patient's regular pain medication provider to come up with plan for medication upon discharge. As plan formed will provide rx as needed based on going to ECF to be written "for ECF fill only") Participating in PT. Hold knee flexion for now due to bleeding. All questions and concerns addressed. Educated on use of incentive spirometer. Encouraged ambulation and proper hydration. Patient educated on post-operative restrictions and post-operative care. Assessment and plan: Continue with postoperative care Discharge plan: ECF accepted for tomorrow 09/14
[2018-09-13] MEDS: POTASSIUM 198 MG PO SCH (19:17)
[2018-09-14] MEDS: *HR* HYDROcodone/Acet 10/325 mg TABLET PO PRN ×4 (03:11→17:25)
[2018-09-14] MEDS: *HR* Enoxaparin 30 MG/0.3 ML SYRINGE SQ SCH ×2 (05:13→17:26)
--- NOTE | 2018-09-14 06:25 | Orthopedics Progress Note ---
Date of Encounter: 09/14/18 Time of Encounter: 06:24 - Assessment and Plan (1) Acute blood loss anemia Current Visit: Yes Status: Acute Subjective Interval history: Patient was seen this morning doing well without complaints. Afebrile vital signs stable. Operative extremity: Neurovascularly intact Dressing clean dry and intact. Calves nontender Assessment and plan: Continue with postoperative care discharge today Objective Vital signs: Vital Signs Temp Pulse Resp BP Pulse Ox 09/13/18 22:28 97.9 F 77 15 136/76 91 09/13/18 20:36 18 91 09/13/18 18:52 98.2 F 73 15 135/80 93 09/13/18 15:53 98.1 F 71 16 137/68 96 09/13/18 09:55 98.4 F 78 16 109/68 96 09/13/18 07:39 16 96 09/13/18 07:04 98.6 F 74 16 107/65 96 09/13/18 06:29 98.4 F 75 16 134/87 95 Intake and Output 09/13/18 09/13/18 09/14/18 15:59 23:59 07:59 Intake Total 400 / 700 50 / 700 Output Total 700 / 1100 500 / 500 Balance 400 / -400 -650 / -400 -500 / -500 Intake: IV Fluids 100 / 100 Ofirmev 1,000 mg/100 ml 1,000 100 / 100 mg In 100 ml @ 400 mls/hr IVPB Q6HR PRN Rx#:[id number] Oral 300 / 600 50 / 600 Output: Urine 700 / 1100 500 / 500 Other: Percent of Meal Consumed 60% # Voids 1 Weight 148.7 kg Blood Glucose* 123 132 Patient Weight 09/14/18 23:59 Weight 148.7 kg - Labs CBC & BMP: 09/13/18 02:50 09/13/18 02:54 Labs: Abnormal lab results RBC 3.17 M/mcL (3.82-4.97) L 09/13/18 02:50 Hgb 9.2 g/dL (11.5-15.4) L 09/13/18 02:50 Hct 29.5 % (35.3-44.9) L 09/13/18 02:50 MCHC 31.2 g/dL (31.6-35.5) L 09/13/18 02:50 RDW 14.8 % (11.5-14.5) H 09/13/18 02:50 Glucose 160 mg/dL (70-105) H 09/13/18 02:54 POC Glucose 123 mg/dL (70-99) H 09/13/18 11:21 - VTE Documentation of Mechanical Device: Venous foot pump, device Consult Discharge Plan - Plan Referrals: Willow Chase [Primary Care Provider] -
[2018-09-14 07:42] LABS: Basophils % 0.5 %; Eosinophils # 0.5 K/mcL (0.0-0.6); Eosinophils % 7.9 %; Hematocrit 32.4 % (35.3-44.9); Hemoglobin 10.2 g/dL (11.5-15.4); Immature Granulocytes % 0.5 % (0-4); Lymphocytes # 1.6 K/mcL (0.6-4.6); Mean Corpuscular HGB Conc 31.5 g/dL (31.6-35.5); Mean Corpuscular Hemoglobin 29.1 pg (28.0-33.3); Mean Corpuscular Volume 92.6 fL (83.0-100.0); Mean Platelet Volume 11.4 fL (9.4-12.4); Monocytes # 0.3 K/mcL (0.0-1.3); Monocytes % 5.3 %; Neutrophils # 3.6 K/mcL (1.6-8.9); Platelet Count 164 K/mcL (140-400); Red Cell Distribution Width 15.2 % (11.5-14.5); Segmented Neutrophils % 58.8 %
[2018-09-14] MEDS: Budesonide/Formoterol 160/4.5 1 PUFF INH IH SCH ×2 (07:46→19:49)
[2018-09-14] MEDS: Tiotropium 18 MCG inhalation IH SCH (07:46)
[2018-09-14 08:01] LABS: BUN/Creatinine Ratio 25 (6-26); Blood Urea Nitrogen 16 mg/dL (8-23); Calcium 9.1 mg/dL (8.6-10.3); Carbon Dioxide 31 mEq/L (23-29); Chloride 100 mEq/L (98-107); Glucose 113 mg/dL (70-105); Osmolality,Calculated 288 (280-300); Potassium 4.3 mEq/L (3.5-5.1); Sodium 138 mEq/L (136-145); eGFR For Non-African Americans > 60 (> 60)
[2018-09-14] MEDS: Multivit/Ca/Min/Fe/FA 1 TAB TABLET PO SCH (09:01)
[2018-09-14] MEDS: Ascorbic Acid 500 MG TABLET PO SCH ×2 (09:02→17:25)
[2018-09-14] MEDS: Aspirin Enteric Coated 81 MG Tablet PO SCH (09:02)
[2018-09-14] MEDS: *HR* Metformin 500 MG TABLET PO SCH ×2 (09:02→17:25)
[2018-09-14 12:10] VITALS: BP 137/78
== END 2018-09-14 19:00 | DRG 467 ==
LOC: SAMDAY 12:37 → 3NENU 17:31
PROVIDERS: ADMIT Orthopaedic Surgery; ATTEND Orthopaedic Surgery

== ENCOUNTER 2019-10-26 08:03 | Inpatient (IN) ==
[~2019-10-26 08:03] MED LIST: Celecoxib 200 MG CAPSULE PO ONE
[2019-10-26] MEDS ORDERED: Ondansetron 4 MG/2 ML VIAL ONE (08:20)
[2019-10-26] MEDS ORDERED: Lidocaine -MPF 2% 2 ML VIAL ONE (08:20)
[2019-10-26] MEDS ORDERED: *HR* FentaNYL (PF) 100 MCG/2 ML VIAL ONE ×2 (08:21→09:36)
[2019-10-26] MEDS ORDERED: *HR* Propofol 200 MG/20 ML VIAL IVP ONE (08:21)
[2019-10-26] MEDS ORDERED: Ondansetron 4 MG/2 ML VIAL IVP PRN ×2 (08:35→13:51)
[2019-10-26] MEDS ORDERED: *HR* Labetalol 20 MG/4 ML SYRINGE IVP PRN (08:35)
[2019-10-26] MEDS ORDERED: CeFAZolin Syr 3,000MG/30 ML 3,000 MG/30 ML SYRINGE IVPB ONE (08:35)
[2019-10-26] MEDS ORDERED: *HR* HYDROmorphone (PF) 1 MG/ML SYRINGE IVP PRN (08:35)
[2019-10-26] MEDS ORDERED: *HR* Promethazine 25 MG/ML VIAL IVP PRN ×2 (08:35→13:51)
[2019-10-26] MEDS ORDERED: Ringers Solution, Lactated 1,000 ML IVC SCH (08:45)
[2019-10-26] MEDS ORDERED: Total Joint Mixture (50 ml) INTRAART ONE (09:30)
[2019-10-26] MEDS ORDERED: Ropivacaine/PF 0.5% 30 ML VIAL ONE (09:36)
[2019-10-26] MEDS ORDERED: Vancomycin 1,000 MG VIAL ONE (09:39)
[2019-10-26] MEDS ORDERED: Ethanol\\Acetic Acid\\Na Ace\\Ben 1,000 ML IRRIG.SOLN IR ONE (09:39)
[2019-10-26] MEDS ORDERED: Tranexamic Acid 1,000 MG/10 ML VIAL ONE (11:25)
[2019-10-26] MEDS ORDERED: *HR* Succinylcholine 200 MG/10 ML VIAL IVP ONE (11:26)
[2019-10-26] MEDS ORDERED: Dexamethasone 4 MG/ML VIAL ONE (11:26)
[2019-10-26] MEDS ORDERED: *HR* Rocuronium Bromide 50 MG/5 ML VIAL ONE (11:26)
[2019-10-26] MEDS ORDERED: Lidocaine HCL 4 ML Topical Solution (Laryng-O-Jet Kit Sterile Pak) TP ONE (11:26)
[2019-10-26] MEDS ORDERED: EPHEDrine 50 MG/ML VIAL ONE (11:34)
[2019-10-26 13:21] LABS: Hematocrit 36.5 % (35.3-44.9); Hemoglobin 10.8 g/dL (11.5-15.4)
[2019-10-26] MEDS ORDERED: D5% in Water 1,000 ML IVC PRN (13:51)
[2019-10-26] MEDS ORDERED: MOM Conc 10 ML UD.LIQ PO PRN (13:51)
[2019-10-26] MEDS ORDERED: Naloxone 0.4 MG/ML INJ IVP PRN (13:51)
[2019-10-26] MEDS ORDERED: *HR* Dextrose 50 % in Water (Vial) 50 ML VIAL IVP PRN (13:51)
[2019-10-26] MEDS ORDERED: tiZANidine 4 MG TABLET PO PRN (13:51)
[2019-10-26] MEDS ORDERED: HYDROcodone BIT/Homatropine 5 MG TABLET PO PRN ×2 (13:51→15:39)
[2019-10-26] MEDS ORDERED: *HR* OxyCODONE Immed Rel 5 MG TABLET PO PRN (13:51)
[2019-10-26] MEDS ORDERED: Ipratropium/Albuterol Neb 3 ML IH PRN (13:51)
[2019-10-26] MEDS ORDERED: Furosemide 40 MG TABLET PO PRN (13:51)
[2019-10-26] MEDS ORDERED: Dextrose Gel 15 GM/37.5 ML TUBE PO PRN ×2 (13:51)
[2019-10-26] MEDS ORDERED: Sennosides 8.6 MG TABLET PO PRN (13:51)
[2019-10-26] MEDS: Insulin LISPRO 300 UNITS/3 ML VIAL SQ SCH ×2 (14:47→17:57)
[2019-10-26] MEDS ORDERED: CLEAR EYES NATURAL TEARS 15 ML BOTTLE BOTH EYES PRN (15:43)
[2019-10-26] MEDS: *HR* HYDROcodone/Acet 10/325 mg TABLET PO SCH ×3 (15:48→23:28)
[2019-10-26] MEDS: Ascorbic Acid 500 MG TABLET PO SCH (15:49)
[2019-10-26] MEDS: ceFAZolin 3,000 MG in 0.9 % Sodium Chloride 100 ML IVPB SCH (19:05)
[2019-10-26] MEDS: Insulin DETEMIR 100 UNIT/ML X5UNITS SQ SCH (19:57)
[2019-10-26] MEDS: Cholecalciferol (D-3) 1,000 UNIT (25MCG) TABLET PO SCH (19:57)
[2019-10-26] MEDS: Ringers Solution, Lactated 1,000 ML IVC SCH (19:59)
[2019-10-26] MEDS ORDERED: Insulin LISPRO 300 UNITS/3 ML VIAL SQ SCH (21:00)
[2019-10-26] MEDS ORDERED: *HR* Metformin 500 MG TABLET PO SCH (21:00)
[2019-10-27] MEDS: *HR* HYDROcodone/Acet 10/325 mg TABLET PO SCH ×5 (03:04→20:21)
[2019-10-27] MEDS: ceFAZolin 3,000 MG in 0.9 % Sodium Chloride 100 ML IVPB SCH (03:05)
[2019-10-27] MEDS: Ringers Solution, Lactated 1,000 ML IVC SCH ×2 (03:10→19:04)
[2019-10-27 06:04] LABS: Hematocrit 31.7 % (35.3-44.9); Hemoglobin 9.8 g/dL (11.5-15.4); Immature Granulocytes % 0.5 % (0-4); Lymphocytes # 0.7 K/mcL (0.6-4.6); Lymphocytes % 8.7 %; Mean Corpuscular HGB Conc 30.9 g/dL (31.6-35.5); Mean Corpuscular Hemoglobin 28.7 pg (28.0-33.3); Mean Platelet Volume 10.6 fL (9.4-12.4); Monocytes # 0.5 K/mcL (0.0-1.3); Monocytes % 5.4 %; Neutrophils # 7.2 K/mcL (1.6-8.9); Platelet Count 171 K/mcL (140-400); Red Blood Count 3.41 M/mcL (3.82-4.97); Red Cell Distribution Width 15.6 % (11.5-14.5); Segmented Neutrophils % 85.4 %; White Blood Count 8.5 K/mcL (4.3-11.1)
[2019-10-27 06:23] LABS: BUN/Creatinine Ratio 26 (6-26); Blood Urea Nitrogen 18 mg/dL (8-23); Carbon Dioxide 27 mEq/L (23-29); Chloride 99 mEq/L (98-107); Glucose 213 mg/dL (70-105); Osmolality,Calculated 284 (280-300); Potassium 4.6 mEq/L (3.5-5.1); Sodium 133 mEq/L (136-145); eGFR For African Americans > 60 (> 60); eGFR For Non-African Americans > 60 (> 60)
[2019-10-27] MEDS: Budesonide/Formoterol 160/4.5 1 PUFF INH IH SCH ×2 (07:58→20:32)
[2019-10-27] MEDS: Tiotropium 18 MCG inhalation IH SCH (08:02)
[2019-10-27] MEDS ORDERED: Aspirin Enteric Coated 81 MG Tablet PO SCH (09:00)
[2019-10-27] MEDS: Multivit/Ca/Min/Fe/FA 1 TAB TABLET PO SCH (09:10)
[2019-10-27] MEDS: Magnesium Oxide 400 MG TABLET PO SCH (09:10)
[2019-10-27] MEDS: Aspirin Enteric Coated 81 MG Tablet PO SCH (09:10)
[2019-10-27] MEDS: Ascorbic Acid 500 MG TABLET PO SCH ×2 (09:11→17:03)
[2019-10-27] MEDS: Insulin LISPRO 300 UNITS/3 ML VIAL SQ SCH ×3 (09:17→17:03)
[2019-10-27] MEDS: Cholecalciferol (D-3) 1,000 UNIT (25MCG) TABLET PO SCH (20:21)
[2019-10-27] MEDS: Insulin DETEMIR 100 UNIT/ML X5UNITS SQ SCH (20:26)
[2019-10-28] MEDS: *HR* HYDROcodone/Acet 10/325 mg TABLET PO SCH ×6 (00:27→21:21)
[2019-10-28] MEDS: Insulin LISPRO 300 UNITS/3 ML VIAL SQ SCH ×3 (08:20→16:25)
[2019-10-28] MEDS: Aspirin Enteric Coated 81 MG Tablet PO SCH (08:35)
[2019-10-28] MEDS: Magnesium Oxide 400 MG TABLET PO SCH (08:35)
[2019-10-28] MEDS: Ascorbic Acid 500 MG TABLET PO SCH ×2 (08:36→16:22)
[2019-10-28] MEDS: Multivit/Ca/Min/Fe/FA 1 TAB TABLET PO SCH (08:36)
[2019-10-28] MEDS: Ringers Solution, Lactated 1,000 ML IVC SCH (08:43)
[2019-10-28] MEDS: Budesonide/Formoterol 160/4.5 1 PUFF INH IH SCH ×2 (10:12→20:43)
[2019-10-28] MEDS: Tiotropium 18 MCG inhalation IH SCH (10:12)
[2019-10-28 10:21] LABS: BUN/Creatinine Ratio 29 (6-26); Blood Urea Nitrogen 18 mg/dL (8-23); Calcium 8.3 mg/dL (8.6-10.3); Carbon Dioxide 30 mEq/L (23-29); Chloride 101 mEq/L (98-107); Glucose 152 mg/dL (70-105); Osmolality,Calculated 289 (280-300); Potassium 4.3 mEq/L (3.5-5.1); Sodium 137 mEq/L (136-145); eGFR For African Americans > 60 (> 60); eGFR For Non-African Americans > 60 (> 60)
[2019-10-28 11:21] LABS: Basophils % 0.4 %; Eosinophils # 0.2 K/mcL (0.0-0.6); Eosinophils % 2.7 %; Hematocrit 34.9 % (35.3-44.9); Hemoglobin 10.4 g/dL (11.5-15.4); Immature Granulocytes % 0.3 % (0-4); Lymphocytes # 1.6 K/mcL (0.6-4.6); Lymphocytes % 23.4 %; Mean Corpuscular HGB Conc 29.8 g/dL (31.6-35.5); Mean Corpuscular Hemoglobin 27.7 pg (28.0-33.3); Mean Corpuscular Volume 93.1 fL (83.0-100.0); Mean Platelet Volume 10.8 fL (9.4-12.4); Monocytes # 0.5 K/mcL (0.0-1.3); Monocytes % 7.2 %; Neutrophils # 4.6 K/mcL (1.6-8.9); Platelet Count 163 K/mcL (140-400); Red Blood Count 3.75 M/mcL (3.82-4.97); Red Cell Distribution Width 16.5 % (11.5-14.5); White Blood Count 6.9 K/mcL (4.3-11.1)
[2019-10-28] MEDS: Insulin DETEMIR 100 UNIT/ML X5UNITS SQ SCH (22:02)
[2019-10-28] MEDS: Cholecalciferol (D-3) 1,000 UNIT (25MCG) TABLET PO SCH (22:02)
[2019-10-29] MEDS: *HR* HYDROcodone/Acet 10/325 mg TABLET PO SCH ×5 (00:05→16:11)
[2019-10-29] MEDS: Budesonide/Formoterol 160/4.5 1 PUFF INH IH SCH (08:05)
[2019-10-29] MEDS: Tiotropium 18 MCG inhalation IH SCH (08:07)
[2019-10-29] MEDS: Insulin LISPRO 300 UNITS/3 ML VIAL SQ SCH ×2 (08:12→12:20)
[2019-10-29] MEDS: Aspirin Enteric Coated 81 MG Tablet PO SCH (08:31)
[2019-10-29] MEDS: Ascorbic Acid 500 MG TABLET PO SCH (08:32)
[2019-10-29] MEDS: Magnesium Oxide 400 MG TABLET PO SCH (08:32)
[2019-10-29] MEDS: Multivit/Ca/Min/Fe/FA 1 TAB TABLET PO SCH (08:32)
[2019-10-29] MEDS: Ringers Solution, Lactated 1,000 ML IVC SCH ×2 (10:56→10:57)
[2019-10-29 11:05] VITALS: BP 177/85
== END 2019-10-29 16:35 | DRG 467 ==
LOC: SAMDAY 08:03 → 3NENU 13:58
PROVIDERS: ADMIT Orthopaedic Surgery; ATTEND Orthopaedic Surgery

== ENCOUNTER 2019-11-29 03:16 | Inpatient (IN) ==
[2019-11-29] MEDS ORDERED: 0.9 % Sodium Chloride 1,000 ML IVC ONE (03:26)
[2019-11-29] MEDS ORDERED: *HR* HYDROmorphone (PF) 1 MG/ML SYRINGE IVP ONE (03:39)
[2019-11-29] MEDS ORDERED: Ondansetron 4 MG/2 ML VIAL IVP ONE (03:40)
[2019-11-29 04:17] LABS: Basophils % 0.4 %; Eosinophils # 0.2 K/mcL (0.0-0.6); Eosinophils % 3.3 %; Hematocrit 33.7 % (35.3-44.9); Hemoglobin 10.6 g/dL (11.5-15.4); Immature Granulocytes % 0.3 % (0-4); Lymphocytes # 1.6 K/mcL (0.6-4.6); Lymphocytes % 22.8 %; Mean Corpuscular HGB Conc 31.5 g/dL (31.6-35.5); Mean Corpuscular Hemoglobin 28.6 pg (28.0-33.3); Mean Corpuscular Volume 91.1 fL (83.0-100.0); Mean Platelet Volume 10.9 fL (9.4-12.4); Monocytes # 0.5 K/mcL (0.0-1.3); Monocytes % 6.8 %; Neutrophils # 4.7 K/mcL (1.6-8.9); Platelet Count 193 K/mcL (140-400); Red Cell Distribution Width 15.7 % (11.5-14.5); Segmented Neutrophils % 66.4 %; White Blood Count 7.1 K/mcL (4.3-11.1)
[2019-11-29 04:31] LABS: Alanine Aminotransferase 29 Units/L (7-52); Albumin 4.2 g/dL (3.5-5.7); Albumin/Globulin Ratio 1.6 (1.1-2.2); Alkaline Phosphatase 97 Units/L (34-104); Aspartate Amino Transferase 24 Units/L (13-39); BUN/Creatinine Ratio 16 (6-26); Bilirubin,Total 0.9 mg/dL (0.3-1.0); Blood Urea Nitrogen 13 mg/dL (8-23); C-Reactive Protein < 5 mg/L (Less than 10); Calcium 9.4 mg/dL (8.6-10.3); Carbon Dioxide 28 mEq/L (23-29); Chloride 100 mEq/L (98-107); Globulin 2.7 g/dL (2.4-3.5); Glucose 142 mg/dL (70-105); Osmolality,Calculated 285 (280-300); Potassium 4.4 mEq/L (3.5-5.1); Sodium 136 mEq/L (136-145); Total Protein 6.9 g/dL (6.4-8.9); eGFR For African Americans > 60 (> 60); eGFR For Non-African Americans > 60 (> 60)
[2019-11-29] MEDS ORDERED: cefTRIAXone 1,000 MG in Water for inj. (sterile) 10 ML IVP ONE (04:51)
[2019-11-29] MEDS ORDERED: Vancomycin 2,000 MG/520 ML IV.SOLN IVPB ONE (05:00)
[2019-11-29] MEDS ORDERED: Ondansetron 4 MG/2 ML VIAL IVP PRN (05:27)
[2019-11-29] MEDS ORDERED: Naloxone 0.4 MG/ML INJ IVP PRN (05:27)
[2019-11-29] MEDS ORDERED: Dextrose Gel 15 GM/37.5 ML TUBE PO PRN ×2 (05:43)
[2019-11-29] MEDS ORDERED: *HR* Dextrose 50 % in Water (Vial) 50 ML VIAL IVP PRN (05:43)
[2019-11-29] MEDS ORDERED: D5% in Water 1,000 ML IVC PRN (05:43)
[2019-11-29] MEDS: *HR* HYDROcodone/Acet 7.5/325 mg TABLET PO SCH ×3 (06:28→17:53)
[2019-11-29 06:58] LABS: INR 1.6; Prothrombin Time 18.6 Seconds (9.4-12.1)
[2019-11-29] MEDS: Insulin LISPRO 300 UNITS/3 ML VIAL SQ SCH ×3 (08:05→16:31)
[2019-11-29] MEDS: Budesonide/Formoterol 160/4.5 1 PUFF INH IH SCH (08:14)
[2019-11-29] MEDS: Tiotropium 18 MCG inhalation IH SCH (08:17)
[2019-11-29] MEDS ORDERED: Aspirin Enteric Coated 81 MG Tablet PO SCH (09:00)
[2019-11-29] MEDS: Magnesium Oxide 400 MG TABLET PO SCH (09:36)
[2019-11-29] MEDS: Piperacillin/Tazobactam 3.375 GM in 0.9 % Sodium Chloride Mini Bag 100 ML IVPB SCH ×2 (09:36→15:55)
[2019-11-29] MEDS: *HR* HYDROmorphone (PF) 1 MG/ML SYRINGE IVP PRN ×4 (09:43→23:31)
[2019-11-29] MEDS: *HR* Rivaroxaban 10 MG TABLET PO SCH (15:55)
[2019-11-29] MEDS: Vancomycin 2,000 MG/520 ML IV.SOLN IVPB SCH (17:58)
[2019-11-30] MEDS: *HR* HYDROcodone/Acet 7.5/325 mg TABLET PO SCH ×3 (00:50→11:32)
[2019-11-30] MEDS: Piperacillin/Tazobactam 3.375 GM in 0.9 % Sodium Chloride Mini Bag 100 ML IVPB SCH ×4 (00:53→23:45)
[2019-11-30] MEDS: *HR* HYDROmorphone (PF) 1 MG/ML SYRINGE IVP PRN ×5 (02:48→22:40)
[2019-11-30] MEDS: Vancomycin 2,000 MG/520 ML IV.SOLN IVPB SCH ×2 (05:59→18:24)
[2019-11-30 06:30] LABS: Basophils % 0.4 %; Eosinophils # 0.5 K/mcL (0.0-0.6); Eosinophils % 8.8 %; Hematocrit 33.3 % (35.3-44.9); Immature Granulocytes % 0.4 % (0-4); Lymphocytes # 1.7 K/mcL (0.6-4.6); Lymphocytes % 30.9 %; Mean Corpuscular Hemoglobin 28.2 pg (28.0-33.3); Mean Corpuscular Volume 93.8 fL (83.0-100.0); Mean Platelet Volume 10.7 fL (9.4-12.4); Monocytes # 0.4 K/mcL (0.0-1.3); Monocytes % 8.1 %; Neutrophils # 2.8 K/mcL (1.6-8.9); Platelet Count 194 K/mcL (140-400); Red Blood Count 3.55 M/mcL (3.82-4.97); Red Cell Distribution Width 15.7 % (11.5-14.5); Segmented Neutrophils % 51.4 %; White Blood Count 5.3 K/mcL (4.3-11.1)
[2019-11-30 06:52] LABS: BUN/Creatinine Ratio 19 (6-26); Blood Urea Nitrogen 15 mg/dL (8-23); Calcium 9.3 mg/dL (8.6-10.3); Carbon Dioxide 33 mEq/L (23-29); Chloride 100 mEq/L (98-107); Glucose 138 mg/dL (70-105); Osmolality,Calculated 285 (280-300); Potassium 5.1 mEq/L (3.5-5.1); Sodium 136 mEq/L (136-145); eGFR For African Americans > 60 (> 60); eGFR For Non-African Americans > 60 (> 60)
[2019-11-30] MEDS: Magnesium Oxide 400 MG TABLET PO SCH (07:38)
[2019-11-30] MEDS: Insulin LISPRO 300 UNITS/3 ML VIAL SQ SCH ×3 (07:39→16:26)
[2019-11-30] MEDS: Budesonide/Formoterol 160/4.5 1 PUFF INH IH SCH (08:02)
[2019-11-30] MEDS: Tiotropium 18 MCG inhalation IH SCH (08:02)
[2019-11-30] MEDS: *HR* Rivaroxaban 10 MG TABLET PO SCH (16:16)
[2019-11-30] MEDS: *HR* HYDROcodone/Acet 10/325 mg TABLET PO PRN ×2 (16:16→20:16)
[2019-12-01] MEDS: *HR* HYDROcodone/Acet 10/325 mg TABLET PO PRN ×3 (03:49→20:51)
[2019-12-01] MEDS: Vancomycin 2,000 MG/520 ML IV.SOLN IVPB SCH ×2 (05:49→18:04)
[2019-12-01] MEDS: Tiotropium 18 MCG inhalation IH SCH (08:26)
[2019-12-01] MEDS: Budesonide/Formoterol 160/4.5 1 PUFF INH IH SCH (08:26)
[2019-12-01] MEDS: Magnesium Oxide 400 MG TABLET PO SCH (10:00)
[2019-12-01] MEDS: Piperacillin/Tazobactam 3.375 GM in 0.9 % Sodium Chloride Mini Bag 100 ML IVPB SCH ×4 (10:02→23:59)
[2019-12-01] MEDS: Insulin LISPRO 300 UNITS/3 ML VIAL SQ SCH ×3 (12:14→17:59)
[2019-12-01] MEDS: *HR* HYDROmorphone (PF) 1 MG/ML SYRINGE IVP PRN ×2 (13:59→23:59)
[2019-12-01] MEDS: *HR* Rivaroxaban 10 MG TABLET PO SCH (17:56)
[2019-12-02] MEDS: *HR* HYDROcodone/Acet 10/325 mg TABLET PO PRN ×3 (04:21→16:52)
[2019-12-02 06:04] LABS: BUN/Creatinine Ratio 25 (6-26); Blood Urea Nitrogen 16 mg/dL (8-23); eGFR For African Americans > 60 (> 60); eGFR For Non-African Americans > 60 (> 60)
[2019-12-02] MEDS: Vancomycin 2,000 MG/520 ML IV.SOLN IVPB SCH ×2 (06:14→16:55)
[2019-12-02] MEDS: Tiotropium 18 MCG inhalation IH SCH (07:32)
[2019-12-02] MEDS: Budesonide/Formoterol 160/4.5 1 PUFF INH IH SCH (07:32)
[2019-12-02] MEDS: Insulin LISPRO 300 UNITS/3 ML VIAL SQ SCH ×3 (08:33→16:45)
[2019-12-02] MEDS: Magnesium Oxide 400 MG TABLET PO SCH (08:47)
[2019-12-02] MEDS: Piperacillin/Tazobactam 3.375 GM in 0.9 % Sodium Chloride Mini Bag 100 ML IVPB SCH ×2 (08:47→16:53)
[2019-12-02] MEDS: *HR* HYDROmorphone (PF) 1 MG/ML SYRINGE IVP PRN ×2 (12:16→20:29)
[2019-12-02] MEDS: *HR* Rivaroxaban 10 MG TABLET PO SCH (16:52)
[2019-12-03] MEDS: Piperacillin/Tazobactam 3.375 GM in 0.9 % Sodium Chloride Mini Bag 100 ML IVPB SCH ×2 (00:01→07:43)
[2019-12-03 03:07] LABS: Basophils % 0.2 %; Eosinophils # 0.4 K/mcL (0.0-0.6); Eosinophils % 6.6 %; Hematocrit 31.6 % (35.3-44.9); Hemoglobin 9.5 g/dL (11.5-15.4); Immature Granulocytes % 0.4 % (0-4); Lymphocytes # 1.3 K/mcL (0.6-4.6); Lymphocytes % 24.3 %; Mean Corpuscular HGB Conc 30.1 g/dL (31.6-35.5); Mean Corpuscular Hemoglobin 28.3 pg (28.0-33.3); Mean Platelet Volume 11.1 fL (9.4-12.4); Monocytes # 0.4 K/mcL (0.0-1.3); Monocytes % 7.9 %; Neutrophils # 3.2 K/mcL (1.6-8.9); Platelet Count 208 K/mcL (140-400); Red Blood Count 3.36 M/mcL (3.82-4.97); Red Cell Distribution Width 15.8 % (11.5-14.5); Segmented Neutrophils % 60.6 %; White Blood Count 5.3 K/mcL (4.3-11.1)
[2019-12-03 03:27] LABS: BUN/Creatinine Ratio 28 (6-26); Blood Urea Nitrogen 18 mg/dL (8-23); Calcium 9.5 mg/dL (8.6-10.3); Carbon Dioxide 35 mEq/L (23-29); Chloride 99 mEq/L (98-107); Glucose 159 mg/dL (70-105); Osmolality,Calculated 291 (280-300); Potassium 4.1 mEq/L (3.5-5.1); Sodium 138 mEq/L (136-145); eGFR For African Americans > 60 (> 60); eGFR For Non-African Americans > 60 (> 60)
[2019-12-03] MEDS: *HR* HYDROcodone/Acet 10/325 mg TABLET PO PRN ×2 (04:23→13:26)
[2019-12-03] MEDS: Magnesium Oxide 400 MG TABLET PO SCH (07:42)
[2019-12-03] MEDS: Insulin LISPRO 300 UNITS/3 ML VIAL SQ SCH ×2 (07:52→11:08)
[2019-12-03] MEDS: Tiotropium 18 MCG inhalation IH SCH (08:06)
[2019-12-03] MEDS: Budesonide/Formoterol 160/4.5 1 PUFF INH IH SCH (08:08)
[2019-12-03] MEDS: Nystatin POWDER 30 GM BOTTLE TP SCH ×2 (08:59→14:50)
[2019-12-03] MEDS ORDERED: Vancomycin 2,000 MG/520 ML IV.SOLN IVPB SCH (10:00)
[2019-12-03 10:41] VITALS: BP 136/73
[2019-12-03] MEDS ORDERED: tiZANidine 4 MG TABLET PO ONE (13:42)
== END 2019-12-03 15:45 | DRG 863 ==
LOC: EMEROOARM 03:16 → 3NENU 03:16 → SUATTDRO 14:55
PROVIDERS: ADMIT Internal Medicine; ATTEND Internal Medicine

== ENCOUNTER 2022-01-07 14:02 | Inpatient (IN) ==
[2022-01-07 16:44] LABS: Basophils % 0.5 %; Eosinophils # 0.1 K/mcL (0.0-0.6); Eosinophils % 2.3 %; Hemoglobin 12.6 g/dL (11.5-15.4); Immature Granulocytes % 0.3 % (0-4); Lymphocytes # 1.7 K/mcL (0.6-4.6); Lymphocytes % 28.4 %; Mean Corpuscular Hemoglobin 27.7 pg (28.0-33.3); Mean Corpuscular Volume 92.3 fL (83.0-100.0); Mean Platelet Volume 11.9 fL (9.4-12.4); Monocytes # 0.4 K/mcL (0.0-1.3); Monocytes % 7.1 %; Neutrophils # 3.7 K/mcL (1.6-8.9); Platelet Count 180 K/mcL (140-400); Red Blood Count 4.55 M/mcL (3.82-4.97); Segmented Neutrophils % 61.4 %; White Blood Count 6.1 K/mcL (4.3-11.1)
[2022-01-07 16:56] LABS: BUN/Creatinine Ratio 24 (6-26); Blood Urea Nitrogen 20 mg/dL (8-23); Calcium 9.6 mg/dL (8.6-10.3); Carbon Dioxide 31 mEq/L (23-29); Chloride 99 mEq/L (98-107); Glucose 143 mg/dL (70-105); Osmolality,Calculated 295 (280-300); Potassium 3.8 mEq/L (3.5-5.1); Sodium 140 mEq/L (136-145); Troponin I < 0.03 ng/mL (< 0.04)
[2022-01-07 17:14] LABS: VBG HCO3 32 mEq/L (21-27); VBG PCO2 65 mmHg (41-51); VBG PO2 67 mmHg (25-50)
[2022-01-07 19:06] LABS: Bilirubin,Urine Negative (Negative); Blood,Urine Negative (Negative); Calcium Oxalate Crystals,Urine Present per hpf; Clarity,Urine Clear (Clear); Color,Urine Yellow (Yellow); Glucose,Urine (UA) Normal (Normal); Hyaline Casts,Urine Few per lpf (None Seen); Ketones,Urine Negative (Negative); Leukocyte Esterase,Urine Small (Negative); Mucus,Urine Few per lpf (None-Few); Nitrite,Urine Negative (Negative); PH,Urine 5.5 pH Units (5.0-8.0); Protein,Urine 30 mg/dL (Neg-Trace); Specific Gravity,Urine > 1.030 (1.010-1.025); Squamous Epithelial Cell,Urine Few per hpf (None-Few); Urobilinogen,Urine Normal (Normal)
[2022-01-07] MEDS ORDERED: cefTRIAXone 1,000 MG in 0.9 % Sodium Chloride 10 ML IVP ONE (19:49)
[2022-01-07] MEDS ORDERED: Iopamidol - 370 500 ML MLS IVP ONE (20:24)
[2022-01-07] MEDS ORDERED: Naloxone 0.4 MG/ML INJ IVP PRN (21:51)
[2022-01-07] MEDS ORDERED: Acetaminophen 325 MG TABLET PO PRN (21:51)
[2022-01-07] MEDS ORDERED: *HR* Dextrose 50 % in Water (Syg) 50 ML SYRINGE IVP PRN (22:44)
[2022-01-07] MEDS ORDERED: Dextrose Gel 15 GM/37.5 ML TUBE PO PRN ×2 (22:44)
[2022-01-07] MEDS ORDERED: D5% in Water 1,000 ML IVC PRN (22:44)
[2022-01-07] MEDS ORDERED: methylPREDNISolone 125 MG/2 ML VIAL IVP ONE (23:00)
[2022-01-08 02:44] LABS: Basophils % 0.3 %; Eosinophils # 0.1 K/mcL (0.0-0.6); Eosinophils % 2.4 %; Hematocrit 36.5 % (35.3-44.9); Hemoglobin 11.2 g/dL (11.5-15.4); Immature Granulocytes % 0.2 % (0-4); Lymphocytes # 1.5 K/mcL (0.6-4.6); Lymphocytes % 25.3 %; Mean Corpuscular HGB Conc 30.7 g/dL (31.6-35.5); Mean Corpuscular Hemoglobin 27.9 pg (28.0-33.3); Mean Corpuscular Volume 90.8 fL (83.0-100.0); Mean Platelet Volume 11.5 fL (9.4-12.4); Monocytes # 0.3 K/mcL (0.0-1.3); Monocytes % 5.6 %; Neutrophils # 3.8 K/mcL (1.6-8.9); Platelet Count 147 K/mcL (140-400); Red Blood Count 4.02 M/mcL (3.82-4.97); Red Cell Distribution Width 16.9 % (11.5-14.5); Segmented Neutrophils % 66.2 %; White Blood Count 5.7 K/mcL (4.3-11.1)
[2022-01-08 02:52] LABS: Estimated Average Glucose 146 mg/dl; Hemoglobin A1C 6.7 %
[2022-01-08 03:05] LABS: INR 1.1; Prothrombin Time 12.3 Seconds (9.4-12.1)
[2022-01-08 03:09] LABS: Activated Partial Thrombo Time 30.1 Seconds (26.0-36.0)
[2022-01-08 03:10] LABS: Albumin 3.7 g/dL (3.5-5.7); Albumin/Globulin Ratio 1.6 (1.1-2.2); Bilirubin,Total 0.9 mg/dL (0.3-1.0); Calcium 8.6 mg/dL (8.6-10.3); Globulin 2.3 g/dL (2.4-3.5); Magnesium 1.8 mg/dL (1.6-2.6); Phosphorous 4.7 mg/dL (2.7-4.5); Potassium 4.1 mEq/L (3.5-5.1)
[2022-01-08] MEDS: Ipratropium/Albuterol Neb 3 ML IH SCH ×4 (04:05→20:21)
[2022-01-08] MEDS: Insulin DETEMIR 100 UNIT/ML X5UNITS SUBQ SCH ×3 (07:39→21:43)
[2022-01-08] MEDS: *HR* Enoxaparin 40 MG/0.4 ML SYRINGE SQ SCH ×2 (10:00→21:43)
[2022-01-08] MEDS: Chlorhexidine Rinse 15 ML MOUTHWASH MM SCH ×2 (10:00→21:43)
[2022-01-08] MEDS: predniSONE 20 MG TABLET PO SCH (10:01)
[2022-01-08] MEDS: Insulin LISPRO 300 UNITS/3 ML VIAL SUBQ SCH ×6 (10:01→16:49)
[2022-01-08] MEDS: Budesonide/Formoterol 160/4.5 1 PUFF INH IH SCH ×2 (10:45→20:21)
[2022-01-08] MEDS: Acetaminophen 325 MG TABLET PO SCH ×2 (12:54→16:47)
[2022-01-09 02:48] LABS: Hematocrit 37.4 % (35.3-44.9); Hemoglobin 11.5 g/dL (11.5-15.4); Mean Corpuscular HGB Conc 30.7 g/dL (31.6-35.5); Mean Corpuscular Hemoglobin 27.5 pg (28.0-33.3); Mean Corpuscular Volume 89.5 fL (83.0-100.0); Mean Platelet Volume 11.1 fL (9.4-12.4); Platelet Count 175 K/mcL (140-400); Red Blood Count 4.18 M/mcL (3.82-4.97); Red Cell Distribution Width 16.1 % (11.5-14.5); White Blood Count 6.5 K/mcL (4.3-11.1)
[2022-01-09 03:05] LABS: BUN/Creatinine Ratio 21 (6-26); Blood Urea Nitrogen 14 mg/dL (8-23); Calcium 8.9 mg/dL (8.6-10.3); Carbon Dioxide 35 mEq/L (23-29); Chloride 100 mEq/L (98-107); Glucose 110 mg/dL (70-105); Osmolality,Calculated 291 (280-300); Potassium 4.5 mEq/L (3.5-5.1); Sodium 140 mEq/L (136-145)
[2022-01-09] MEDS: Ipratropium/Albuterol Neb 3 ML IH SCH ×4 (04:39→21:28)
[2022-01-09 07:06] LABS: Adenovirus Not Detected (Not Detect); Bordetella Pertussis Not Detected (Not Detect); Chlamydophila pneumoniae Not Detected (Not Detect); Coronavirus 229E Not Detected (Not Detect); Coronavirus HKU1 Not Detected (Not Detect); Coronavirus NL63 Not Detected (Not Detect); Coronavirus OC43 Not Detected (Not Detect); Human Metapneumovirus Not Detected (Not Detect); Human Rhinovirus/Enterovirus Not Detected (Not Detect); Influenza A Subtype 2009 H1 Not Detected (Not Detect); Influenza B Not Detected (Not Detect); Mycoplasma pneumoniae Not Detected (Not Detect); Parainfluenza Virus 1 Not Detected (Not Detect); Parainfluenza Virus 2 Not Detected (Not Detect); Parainfluenza Virus 3 Not Detected (Not Detect); Parainfluenza Virus 4 Not Detected (Not Detect); Respiratory Syncytial Virus Not Detected (Not Detect); SARS-CoV-2 Not Detected (Not Detect)
[2022-01-09] MEDS ORDERED: Azithromycin 250 MG TABLET PO ONE (07:58)
[2022-01-09] MEDS: Insulin LISPRO 300 UNITS/3 ML VIAL SUBQ SCH ×6 (10:44→17:06)
[2022-01-09] MEDS: predniSONE 20 MG TABLET PO SCH (10:49)
[2022-01-09] MEDS: Insulin DETEMIR 100 UNIT/ML X5UNITS SUBQ SCH ×2 (10:52→20:11)
[2022-01-09] MEDS: Chlorhexidine Rinse 15 ML MOUTHWASH MM SCH ×2 (10:53→20:11)
[2022-01-09] MEDS: *HR* Enoxaparin 40 MG/0.4 ML SYRINGE SQ SCH ×2 (10:54→20:11)
[2022-01-09] MEDS: Budesonide/Formoterol 160/4.5 1 PUFF INH IH SCH ×2 (11:15→21:28)
[2022-01-09] MEDS: Ondansetron 4 MG/2 ML VIAL IVP PRN (15:48)
[2022-01-09] MEDS: Melatonin 3 MG TABLET PO PRN (22:21)
[2022-01-10] MEDS: Ipratropium/Albuterol Neb 3 ML IH SCH ×4 (04:20→22:00)
[2022-01-10] MEDS: Ondansetron 4 MG/2 ML VIAL IVP PRN ×3 (05:47→21:14)
[2022-01-10] MEDS: Insulin LISPRO 300 UNITS/3 ML VIAL SUBQ SCH ×6 (08:09→16:52)
[2022-01-10] MEDS: Azithromycin 250 MG TABLET PO SCH (08:09)
[2022-01-10] MEDS: Chlorhexidine Rinse 15 ML MOUTHWASH MM SCH ×2 (08:10→21:11)
[2022-01-10] MEDS: *HR* Enoxaparin 40 MG/0.4 ML SYRINGE SQ SCH ×2 (08:22→21:14)
[2022-01-10] MEDS: Insulin DETEMIR 100 UNIT/ML X5UNITS SUBQ SCH ×2 (08:25→21:14)
[2022-01-10] MEDS: predniSONE 20 MG TABLET PO SCH (08:25)
[2022-01-10] MEDS: Budesonide/Formoterol 160/4.5 1 PUFF INH IH SCH ×2 (10:23→22:00)
[2022-01-10] MEDS: BuPROPion XL (24 HR) 150 MG TABLET PO SCH (13:22)
[2022-01-10] MEDS: amLODIPine 5 MG TABLET PO SCH (13:25)
[2022-01-10] MEDS ORDERED: Cholecalciferol (D-3) 1,000 UNIT (25MCG) TABLET PO SCH (21:00)
[2022-01-10] MEDS: Melatonin 3 MG TABLET PO PRN (21:13)
[2022-01-11] MEDS: Ipratropium/Albuterol Neb 3 ML IH SCH ×3 (04:09→15:35)
[2022-01-11] MEDS: Ondansetron 4 MG/2 ML VIAL IVP PRN (05:28)
[2022-01-11] MEDS: Insulin LISPRO 300 UNITS/3 ML VIAL SUBQ SCH ×4 (08:05→11:47)
[2022-01-11] MEDS: *HR* Enoxaparin 40 MG/0.4 ML SYRINGE SQ SCH (08:28)
[2022-01-11] MEDS: Chlorhexidine Rinse 15 ML MOUTHWASH MM SCH (08:28)
[2022-01-11] MEDS: predniSONE 20 MG TABLET PO SCH (08:28)
[2022-01-11] MEDS: amLODIPine 5 MG TABLET PO SCH (08:29)
[2022-01-11] MEDS: Azithromycin 250 MG TABLET PO SCH (08:29)
[2022-01-11] MEDS: BuPROPion XL (24 HR) 150 MG TABLET PO SCH (08:29)
[2022-01-11] MEDS: Insulin DETEMIR 100 UNIT/ML X5UNITS SUBQ SCH (08:31)
[2022-01-11] MEDS ORDERED: Prochlorperazine 10 MG/2 ML VIAL IVP PRN (09:16)
[2022-01-11] MEDS: Budesonide/Formoterol 160/4.5 1 PUFF INH IH SCH (10:52)
[2022-01-11 11:56] LABS: Adenovirus Not Detected (Not Detect); Bordetella Pertussis Not Detected (Not Detect); Chlamydophila pneumoniae Not Detected (Not Detect); Coronavirus 229E Not Detected (Not Detect); Coronavirus HKU1 Not Detected (Not Detect); Coronavirus NL63 Not Detected (Not Detect); Coronavirus OC43 Not Detected (Not Detect); Human Metapneumovirus Not Detected (Not Detect); Human Rhinovirus/Enterovirus Not Detected (Not Detect); Influenza A Subtype 2009 H1 Not Detected (Not Detect); Influenza B Not Detected (Not Detect); Mycoplasma pneumoniae Not Detected (Not Detect); Parainfluenza Virus 1 Not Detected (Not Detect); Parainfluenza Virus 2 Not Detected (Not Detect); Parainfluenza Virus 3 Not Detected (Not Detect); Parainfluenza Virus 4 Not Detected (Not Detect); Respiratory Syncytial Virus Not Detected (Not Detect); SARS-CoV-2 Not Detected (Not Detect)
[2022-01-11 15:36] VITALS: O2SAT 94
[2022-01-11 15:37] VITALS: BP 142/64; PULSE 89; TEMP 98.5
== END 2022-01-11 16:23 | DRG 189 ==
LOC: 2ANU 14:02 → EMEROOARM 14:02 → 2ANU 23:05 → SUATTDRO 01-08 11:54
PROVIDERS: ADMIT Internal Medicine; ATTEND Internal Medicine